=== PATIENT | male | born 1960 | race Caucasian/White ===

== ENCOUNTER 2022-02-08 14:20 | Outpatient (REF) | payer OTHER, SELFPAY ==
--- NOTE | ~2022-02-08 | XR_ITS ---
EXAMINATION: XR FOOT, LEFT CLINICAL INFORMATION: Pneumonia left foot. Rule out osteoma myelitis COMPARISON: None TECHNIQUE: AP, lateral, and oblique views of the left foot. FINDINGS: There is no fracture, dislocation, periosteal erosion or thickening there is a moderate size calcaneal and a small retrocalcaneal enthesophyte. There is soft tissue gas along the plantar aspect proximal phalanx third digit but no extension to the undersurface of the metatarsals or phalanges. XR/XR foot LT min 3V IMPRESSION: 1. Soft tissue gas along the plantar aspect distal foot but no extension to the undersurface of the metatarsals or phalanges to suspect osteomyelitis. 2. There is a moderate size calcaneal heel and small retrocalcaneal enthesophytes.
[2022-02-08 16:32] LABS: MANUAL DIFF FLAG NO
[2022-02-08 16:45] LABS: Estimated Average Glucose 146 mg/dL; Hemoglobin A1c % 6.7 %
[2022-02-08 16:57] LABS: Alanine Aminotransferase 19 U/L (0-40); Albumin Level 3.9 g/dL (3.5-5.0); Alkaline Phosphatase 73 U/L (39-117); Anion Gap 15 (12-20); Aspartate Amino Transferase 18 U/L (5-37); Blood Urea Nitrogen 17 mg/dL (9-16); C Reactive Protein 5.87 mg/dL (< or = 0.50); Calcium 8.8 mg/dL (8.4-10.2); Carbon Dioxide 28 mmol/L (22-29); Chloride 103 mmol/L (96-108); Estimated Glomerular Filt Rate > 60; Glucose Random 140 mg/dL (60-115); Potassium 3.9 mmol/L (3.3-5.1); Sodium 142 mmol/L (135-145); Total Protein 7.2 g/dL (6.5-8.0)
[2022-02-08 16:59] LABS: Basophils Percent Auto 0.4 % (0-2); Eosinophils Absolute Auto 0.2 X10*3/uL (0.0-0.4); Eosinophils Percent Auto 2.7 % (0-4); Hematocrit 42.1 % (42.0-52.0); Hemoglobin 14.9 g/dl (14.0-18.0); Imm Gran Abs Auto 0.03 X10*3/uL (0.00-0.03); Imm Gran Pct Auto 0.4 % (0.0-0.4); Lymphocytes Absolute Auto 1.3 X10*3/uL (1.2-4.9); Lymphocytes Percent Auto 19.6 % (20-40); Mean Corpuscular HGB Conc 35.4 g/dl (31.0-36.0); Mean Corpuscular Hemoglobin 36.3 pg (27.0-33.0); Mean Corpuscular Volume 102.7 fL (80.0-98.0); Mean Platelet Volume 9.5 fL (9.4-12.4); Monocytes Absolute Auto 0.7 X10*3/uL (0.1-1.2); Monocytes Percent Auto 10.5 % (2-11); Neutrophils Absolute Auto 4.5 x10*3/uL (2.0-8.3); Neutrophils Percent Auto 66.4 % (45-73); Platelet Count 255 X10*3/uL (160-400); Red Cell Distribution Width 12.5 % (11.0-16.0); White Blood Count 6.8 X10*3/uL (4.8-10.8)
[2022-02-08 17:11] LABS: Erythrocyte Sedimentation Rate 20 MM/HR (0-15)
== END 2022-02-08 14:21 | disposition home or self-care (01) ==
LOC: HO.HMGCLDS 14:20
PROVIDERS: PCP Internal Medicine; Visit Provider Internal Medicine
DX: R53.83 Other fatigue (principal); E11.9 Type 2 diabetes mellitus without complications; S91.302D Unspecified open wound, left foot, subsequent encounter
CPT/HCPCS: 36415; 73630; 80053; 83036; 85025; 85652; 86140

== ENCOUNTER 2022-02-21 07:50 | Outpatient (RCR) | payer OTHER, SELFPAY | END 2022-05-17 16:00 | disposition home or self-care (01) | LOC: HO.WCC 07:50 | PROVIDERS: PCP Internal Medicine; Visit Provider Physician Assistant | DX: E11.621 Type 2 diabetes mellitus with foot ulcer (principal); L97.522 Non-pressure chronic ulcer of other part of left foot with fat layer exposed; E11.42 Type 2 diabetes mellitus with diabetic polyneuropathy; I10 Essential (primary) hypertension; Z79.84 Long term (current) use of oral hypoglycemic drugs; Z79.2 Long term (current) use of antibiotics | CPT/HCPCS: 11042; 11043; 99212 ==

== ENCOUNTER → 2022-03-02 10:38 | Outpatient (REF) | payer OTHER, SELFPAY ==
--- NOTE | ~2022-03-02 | NM_ITS ---
EXAMINATION: THREE PHASE BONE SCAN CLINICAL INFORMATION: Left foot infected ulcer. Diabetes, ulcer left foot for 2 1/2 months. Debridement 03/02/2022.. COMPARISON: No previous bone scan is available for comparison. Radiographs of the left foot dated 02/08/2022 are available for comparison.. TECHNIQUE: Initial rapid sequence images were obtained over the feet during the bolus injection of 38 mCi Tc-99m MDP. Static images of the knees to the feet with multiple projections of the distal lower extremities were then obtained 2.5 hours post injection. FINDINGS: Initial rapid sequence images show a diffuse mild increase in flow to the left foot with a focus of more prominently increased flow in the region of the distal aspect of the left second metatarsal. Blood pool images obtained immediately following the flow study are similar in appearance showing a mild diffuse increase in blood pool activity in the left foot with a focus of more prominently increased activity in the distal aspect of the second metatarsal. Distally this activity has a circumferential peripheral pattern which is centrally relatively photopenic. Delayed static images show a focus of moderately increased activity in the left distal second metatarsal region corresponding to the region of increased flow and blood pool activity described above. Distal to this in the second digit an additional focus of mildly increased activity is present, probably in the proximal phalanx. In addition to these more distal foci, there is mildly to moderately increased activity present in the mid foot in the region of the second and third tarsometatarsal joints and a slightly less intense focus is present more medially probably in the medial cuneiform bone. No other foci of abnormal activity are present in either foot or ankle. In the knees there is mildly increased activity in the patellar compartment of the right knee. Radiographs of the left foot dated 02/08/2022 show evidence of a skin ulcer in the plantar aspect of the distal left foot. NM/NM bone 3 phase IMPRESSION: 1. Abnormality in all 3 phases is present in the region of the distal left second metatarsal bone. The findings are suspicious for osteomyelitis in this region. In addition the delayed static images show a mild focal abnormality in the mid second digit of the left foot probably in the proximal phalanx, and this is nonspecific in the absence of significant flow abnormality but could be an additional small focus of osteomyelitis or a healing traumatic lesion.. 2. Mild abnormalities only on the delayed static images in the midfoot are nonspecific. The absence of significant flow abnormalities these are probably degenerative or traumatic in etiology. 3. These abnormalities could be better characterized with MRI of the left foot, performed without and with intravenous contrast.
== END ==
LOC: HO.NUCMED 10:38
PROVIDERS: PCP Internal Medicine; Visit Provider Internal Medicine
DX: E11.621 Type 2 diabetes mellitus with foot ulcer (principal); L97.529 Non-pressure chronic ulcer of other part of left foot with unspecified severity; S92.902B Unspecified fracture of left foot, initial encounter for open fracture
CPT/HCPCS: 78315; A9503

== ENCOUNTER → 2022-03-24 09:34 | Outpatient (BNVA) | payer OTHER, SELFPAY | PROVIDERS: PCP Internal Medicine; Visit Provider Internal Medicine | DX: M86.9 Osteomyelitis, unspecified (principal); S91.302A Unspecified open wound, left foot, initial encounter; X58.XXXA Exposure to other specified factors, initial encounter; Y93.9 Activity, unspecified; Y92.9 Unspecified place or not applicable; Y99.8 Other external cause status; E11.9 Type 2 diabetes mellitus without complications | CPT/HCPCS: 99202 ==

== ENCOUNTER 2022-04-19 08:45 | Outpatient (REF) | payer OTHER, SELFPAY ==
--- NOTE | ~2022-04-19 | MR_ITS ---
EXAMINATION: MR FOOT WITHOUT AND WITH CONTRAST, LEFT CLINICAL INFORMATION: Osteomyelitis. Infected ulcer. Diabetes. COMPARISON: Left foot bone scan dated 03/02/2022 and left foot radiographs dated 02/08/2022. TECHNIQUE: Multisequence MR imaging of the left foot was obtained before and after the IV administration of 10 mL Gadavist contrast on a high-field strength scanner. FINDINGS: Soft tissue ulceration along the plantar aspect of the 2nd metatarsophalangeal joint measuring up to 1.5 cm in ML dimension with adjacent skin thickening and postcontrast soft tissue enhancement, consistent with acute cellulitis. No organized fluid collection/abscess formation. No significant evidence of acute osteomyelitis within the adjacent 2nd metatarsal head or base of the 2nd proximal phalanx. Full-thickness articular cartilage loss at the 2nd metatarsophalangeal joint with bony remodeling, mild subchondral cystic change, and small marginal osteophytes. Findings are similar when compared to the prior radiographs. No additional abnormal marrow signal. No stress reaction or fracture. The visualized flexor and extensor tendons are intact. Atrophy throughout the intrinsic musculature of the foot, which can be seen in diabetic patients. Intact Lisfranc ligament. Dorsal subcutaneous edema. No organized fluid collection/abscess formation. MR/MR foot LT wo/w con IMPRESSION: 1. Soft tissue ulceration and cellulitis along the plantar aspect of the 2nd metatarsophalangeal joint without evidence of abscess formation. No evidence of acute osteomyelitis. 2. 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 3. Dorsal subcutaneous edema. 4. Atrophy throughout the intrinsic musculature of the foot, which can be seen in diabetic patients.
== END 2022-04-19 08:46 | disposition home or self-care (01) ==
LOC: HO.MRI 08:45
PROVIDERS: Visit Provider Internal Medicine
DX: M86.9 Osteomyelitis, unspecified (principal)
CPT/HCPCS: 73720; A9585

== ENCOUNTER 2022-06-28 09:00 | Outpatient (RCR) | payer OTHER, SELFPAY | END 2022-06-28 16:00 | disposition home or self-care (01) | LOC: HO.WCC 09:00 | PROVIDERS: PCP Internal Medicine; Visit Provider Surgery | DX: Z09 Encounter for follow-up examination after completed treatment for conditions other than malignant neoplasm (principal); Z79.84 Long term (current) use of oral hypoglycemic drugs; Z79.899 Other long term (current) drug therapy; Z86.31 Personal history of diabetic foot ulcer | CPT/HCPCS: 97597; 99212 ==

== ENCOUNTER 2023-03-28 07:14 | Outpatient (REF) | payer OTHER, SELFPAY ==
[2023-03-28 11:24] LABS: MANUAL DIFF FLAG NO
[2023-03-28 11:41] LABS: Basophils Percent Auto 0.6 % (0-2); Eosinophils Absolute Auto 0.2 X10*3/uL (0.0-0.4); Eosinophils Percent Auto 2.8 % (0-4); Hematocrit 41.7 % (42.0-52.0); Hemoglobin 15.1 g/dl (14.0-18.0); Imm Gran Abs Auto 0.02 X10*3/uL (0.00-0.03); Imm Gran Pct Auto 0.4 % (0.0-0.4); Lymphocytes Absolute Auto 1.5 X10*3/uL (1.2-4.9); Lymphocytes Percent Auto 28.7 % (20-40); Mean Corpuscular HGB Conc 36.2 g/dl (31.0-36.0); Mean Corpuscular Hemoglobin 38.4 pg (27.0-33.0); Mean Corpuscular Volume 106.1 fL (80.0-98.0); Mean Platelet Volume 9.8 fL (9.4-12.4); Monocytes Absolute Auto 0.6 X10*3/uL (0.1-1.2); Monocytes Percent Auto 10.5 % (2-11); Neutrophils Absolute Auto 3.1 x10*3/uL (2.0-8.3); Platelet Count 211 X10*3/uL (160-400); Red Blood Count 3.93 X10*6/uL (4.60-5.80); Red Cell Distribution Width 14.6 % (11.0-16.0); White Blood Count 5.3 X10*3/uL (4.8-10.8)
[2023-03-28 12:01] LABS: Alanine Aminotransferase 16 U/L (0-40); Albumin Level 3.8 g/dL (3.5-5.0); Alkaline Phosphatase 70 U/L (39-117); Anion Gap 11 (12-20); Aspartate Amino Transferase 22 U/L (5-37); Bilirubin Total 0.6 mg/dL (0.0-1.0); Blood Urea Nitrogen 21 mg/dL (9-16); Calcium 9.1 mg/dL (8.4-10.2); Carbon Dioxide 27 mmol/L (22-29); Chloride 106 mmol/L (96-108); Cholesterol 166 mg/dL (<200); Estimated Average Glucose 140 mg/dL; Estimated Glomerular Filt Rate > 60; Glucose Fasting 153 mg/dL (60-99); HDL Cholesterol 40 mg/dL (>40); Hemoglobin A1c % 6.5 % (<6.0); LDL Cholesterol Calculated 92 mg/dL (<100); Potassium 4.4 mmol/L (3.3-5.1); Sodium 140 mmol/L (135-145); Total Protein 7.2 g/dL (6.5-8.0); Triglycerides 170 mg/dL (<150)
[2023-03-28 12:14] LABS: Prostate Specific Antigen 0.88 ng/mL (<0.05-4.0)
== END 2023-03-28 07:15 | disposition home or self-care (01) ==
LOC: HO.HMGCLDS 07:14
PROVIDERS: PCP Internal Medicine; Visit Provider Internal Medicine
DX: Z00.00 Encounter for general adult medical examination without abnormal findings (principal); Z12.5 Encounter for screening for malignant neoplasm of prostate; R53.83 Other fatigue; E78.00 Pure hypercholesterolemia, unspecified; E11.9 Type 2 diabetes mellitus without complications
CPT/HCPCS: 36415; 80053; 80061; 83036; 84153; 85025

== ENCOUNTER 2023-10-17 10:50 | Inpatient (IN) | payer OTHER, SELFPAY ==
--- NOTE | ~2023-10-17 | US_ITS ---
EXAMINATION: Noninvasive assessment of the bilateral lower extremities with ARTERIAL DUPLEX and ANKLE BRACHIAL INDICES (ABIs). CLINICAL INFORMATION: Peripheral vascular disease. Left foot wound TECHNIQUE: Duplex Doppler techniques with waveform analysis and measurement of velocities in the bilateral common femoral, profunda femoris, superficial femoral, popliteal and tibial arteries were performed. Additionally, ankle pulse volume recordings, ankle pressure measurements and ankle brachial indices were obtained of the lower extremity arterial system bilaterally. The study was performed only at rest. COMPARISON: None FINDINGS: DIRECT DUPLEX DOPPLER FINDINGS: RIGHT LEG: Common femoral artery: 122 cm/s, phasicity: Biphasic Profunda femoris artery: 49 cm/s, phasicity: Triphasic Superficial femoral artery (proximal): 99.4 cm/s, phasicity: Triphasic Superficial femoral artery (mid): 88 cm/s, phasicity: Triphasic Superficial femoral artery (distal): 81.7 cm/s, phasicity: Biphasic Popliteal artery: 104 cm/s, phasicity: Triphasic Posterior tibial artery: 76.5 cm/s, phasicity: Biphasic Peroneal artery: Not visualized Anterior tibial artery: 47.6 cm/s, phasicity: Biphasic Dorsalis pedis artery: 23.8 cm/s, phasicity:Biphasic LEFT LEG: Common femoral artery: 132 cm/s, phasicity: Triphasic Profunda femoris artery: 63.7 cm/s, phasicity: Biphasic Superficial femoral artery (proximal): 81.5 cm/s, phasicity: Triphasic Superficial femoral artery (mid): 142 cm/s, phasicity: Triphasic Superficial femoral artery (distal): 145 cm/s, phasicity: Triphasic Popliteal artery: 112 cm/s, phasicity: Triphasic Posterior tibial artery: 97.8 cm/s, phasicity: Triphasic Peroneal artery: Not visualized Anterior tibial artery: 42.3 cm/s, phasicity: Biphasic Dorsalis pedis artery: 107 cm/s, phasicity: Triphasic ANKLE-BRACHIAL INDEX: Right: 1.13 Left: 1.08 ANKLE PRESSURES: Right: PT 169, DP 184 Left: PT 175, DP 176 ANKLE PVR WAVEFORMS: Right: Normal Left: Normal US/US JULITA complete IMPRESSION: Right leg: Normal ankle brachial index and PVR waveform. Unremarkable duplex arterial ultrasound without significant arterial stenosis or occlusion. Left leg: Normal ankle brachial index and PVR waveform. Unremarkable duplex arterial ultrasound without significant arterial stenosis or occlusion. JULITA Reference: - >1.4 = calcified vessels - 0.9 - 1.4 = normal - no significant arterial disease - 0.7 - 0.89 = mild peripheral arterial disease - 0.51 - 0.69 = moderate peripheral arterial disease - d 0.50 = severe peripheral arterial disease - < .30 = critical arterial disease Electronically signed by: Mathieu Pelaez MD 10/19/2023 02:15 PM EDT RP
--- NOTE | ~2023-10-17 | US_ITS ---
EXAMINATION: Noninvasive assessment of the bilateral lower extremities with ARTERIAL DUPLEX and ANKLE BRACHIAL INDICES (ABIs). CLINICAL INFORMATION: Peripheral vascular disease. Left foot wound TECHNIQUE: Duplex Doppler techniques with waveform analysis and measurement of velocities in the bilateral common femoral, profunda femoris, superficial femoral, popliteal and tibial arteries were performed. Additionally, ankle pulse volume recordings, ankle pressure measurements and ankle brachial indices were obtained of the lower extremity arterial system bilaterally. The study was performed only at rest. COMPARISON: None FINDINGS: DIRECT DUPLEX DOPPLER FINDINGS: RIGHT LEG: Common femoral artery: 122 cm/s, phasicity: Biphasic Profunda femoris artery: 49 cm/s, phasicity: Triphasic Superficial femoral artery (proximal): 99.4 cm/s, phasicity: Triphasic Superficial femoral artery (mid): 88 cm/s, phasicity: Triphasic Superficial femoral artery (distal): 81.7 cm/s, phasicity: Biphasic Popliteal artery: 104 cm/s, phasicity: Triphasic Posterior tibial artery: 76.5 cm/s, phasicity: Biphasic Peroneal artery: Not visualized Anterior tibial artery: 47.6 cm/s, phasicity: Biphasic Dorsalis pedis artery: 23.8 cm/s, phasicity:Biphasic LEFT LEG: Common femoral artery: 132 cm/s, phasicity: Triphasic Profunda femoris artery: 63.7 cm/s, phasicity: Biphasic Superficial femoral artery (proximal): 81.5 cm/s, phasicity: Triphasic Superficial femoral artery (mid): 142 cm/s, phasicity: Triphasic Superficial femoral artery (distal): 145 cm/s, phasicity: Triphasic Popliteal artery: 112 cm/s, phasicity: Triphasic Posterior tibial artery: 97.8 cm/s, phasicity: Triphasic Peroneal artery: Not visualized Anterior tibial artery: 42.3 cm/s, phasicity: Biphasic Dorsalis pedis artery: 107 cm/s, phasicity: Triphasic ANKLE-BRACHIAL INDEX: Right: 1.13 Left: 1.08 ANKLE PRESSURES: Right: PT 169, DP 184 Left: PT 175, DP 176 ANKLE PVR WAVEFORMS: Right: Normal Left: Normal US/US arterial duplex LE BI IMPRESSION: Right leg: Normal ankle brachial index and PVR waveform. Unremarkable duplex arterial ultrasound without significant arterial stenosis or occlusion. Left leg: Normal ankle brachial index and PVR waveform. Unremarkable duplex arterial ultrasound without significant arterial stenosis or occlusion. JULITA Reference: - >1.4 = calcified vessels - 0.9 - 1.4 = normal - no significant arterial disease - 0.7 - 0.89 = mild peripheral arterial disease - 0.51 - 0.69 = moderate peripheral arterial disease - d 0.50 = severe peripheral arterial disease - < .30 = critical arterial disease Electronically signed by: Mathieu Pelaez MD 10/19/2023 02:15 PM EDT
--- NOTE | ~2023-10-17 | IR_ITS ---
History: 63-year-old male with need for long-term IV access Procedure performed: 1. Ultrasound and fluoroscopically guided placement of a single-lumen PICC via the right basilic vein. Physician: Sophie Bradley MD FSIR Anesthesia: 9 mL of 1% lidocaine was utilized for local anesthesia Specimen: None Drain: None Estimated blood loss: Minimal Complications: None Procedure in detail: Informed and written consent was obtained. The patient was positioned supine on the angiography table with sterile preparation of his right arm. A tourniquet was applied. Ultrasound of the arm showed wide patency of the right basilic vein and this was selected for access. 1% lidocaine was injected subcutaneously and extended to the edge of the vein. A small incision was made in the skin with a #11 blade. Through the incision and under ultrasound guidance with permanent recordings and direct visualization of needle entry into the vein, the right basilic vein was catheterized in an antegrade fashion. A wire was threaded to the right atrium and used for measurement. The peel-away sheath was placed over the wire. A single-lumen PICC line was trimmed to length measuring 50 cm and inserted through the peel-away sheath. A saved fluoroscopic image shows that the PICC terminates at the right atrium. The PICC line was tested and flushes and aspirates appropriately. It was locked and secured to the skin with a StatLock device and overlying sterile dressing. Summary: Successful ultrasound and fluoroscopic guided PICC line that terminates in the right atrium and is ready for immediate use. Electronically signed by: Mario Bradley MD 10/25/2023 05:24 PM EDT
--- NOTE | ~2023-10-17 | XR_ITS ---
EXAMINATION: XR TOES, LEFT CLINICAL INFORMATION: Mild tendinosis second toe COMPARISON: October 03, 2023 TECHNIQUE: 3 views of the left toes were obtained. FINDINGS: There is associated destruction of the base AND proximal phalanx of second toe visualized to single view are not surrounded by significant soft tissue swelling most likely due to fracture would be related to osseous destruction due to osteomyelitis, correlate clinically. The rest of tubes are unremarkable. XR/XR toe LT min 2V IMPRESSION: Fracture/destruction of the base of the proximal phalanx of second toe on the left Electronically signed by: Beatriz Hoffmann MD 10/17/2023 04:24 PM EDT
[2023-10-17 11:01] VITALS: BP 184/76; PULSE 68; RESP 18; TEMP 36.8; O2SAT 97; BMI 39.7
--- NOTE | 2023-10-17 11:03 | ED_ITS ---
HPI - General Adult General Chief complaint: General Medical Stated complaint: l foot numb Time Seen by Provider: 10/17/23 17:07 Source: patient Limitations: no limitations History of Present Illness ED Provider: Margy Greco PA-C HPI narrative: 63-year-old male with history of diabetes, hypertension, hyperlipidemia presents with left foot infection for over 1 week. Patient was seen by his doctor as an outpatient, he had cellulitis of the left 2nd toe, he was placed on a course of cephalexin. His symptoms have progressed, the cellulitis has spread to adjacent digits and over the dorsum of the foot. Patient denies fever, he has no pain secondary to his peripheral neuropathy. Patient saw Dr. Person today, he was advised to be admitted to the hospital for IV antibiotics. Related Data Home Medications ?Medication ?Instructions ?Recorded ?Confirmed atorvastatin 20 mg tablet 20 mg PO DAILY 03/24/22 empagliflozin 25 mg tablet 25 mg PO DAILY 03/24/22 (Jardiance) losartan 50 mg tablet 50 mg PO DAILY 03/24/22 metformin 1,000 mg tablet 1,000 mg PO DAILY 03/24/22 metoprolol succinate 50 mg 50 mg PO DAILY 03/24/22 tablet,extended release 24 hr pioglitazone 30 mg tablet 30 mg PO DAILY 03/24/22 Allergies Allergy/AdvReac Type Severity Reaction Status Date / Time No Known Allergies Allergy Verified 10/17/23 11:03 Review of Systems 2 Review of Systems: No all other systems are reviewed and are negative Constitutional: Constitutional: Denies fever(s) Cardiovascular: Cardiovascular: Denies chest pain and Denies dyspnea Respiratory: Respiratory: Denies dyspnea Gastrointestinal: Gastrointestinal: Denies nausea Musculoskeletal: Musculoskeletal: Denies arthralgias and Reports joint swelling Integumentary/Breasts: Skin/Breast: Reports change in pigmentation [facility] Past Medical History Attestation statement: The following information was validated with the patient. Medical History (Updated 10/17/23 @ 17:53 by MOR Vargas) Wound of foot Osteomyelitis Social History Social History Advance Directives: No Advance Directives Information Provided: No Do you have a plan to hurt others: No Plan Physical Exam ED Vital Signs: Vital Signs - 24 hr 10/17/23 11:01 Temperature 98.3 F Pulse Rate 68 Respiratory Rate 18 Blood Pressure 184/76 H Pulse Oximetry 97 Oxygen Delivery Method Room Air BMI result Body Mass Index 39.7 Const Other: Alert well in appearance Orientation/consciousness: patient oriented x3 Resp Other: Nonlabored respiration Cardio Other: Normal peripheral perfusion, pitting edema left foot Skin Other: Warm dry no rash Neuro General: patient oriented x3, no focal motor deficits and CN's II-XI intact bilaterally Extrem Other: Erythema and warmth noted over digits 2 and 3 of the left foot, the erythema spans inferiorly over the dorsum of the foot, the foot overall is edematous Psych Other: Calm cooperative Course Course Course Narrative: RME, this is a rapid medical exam performed by Ovidio Phan please refer to primary provider for complete H&P- patient presents from wound care for a left 2nd toe wound that is infected. Per Dr Molina, the patient requires admission for IV antibiotics. He is currently taking cephalexin. Labs and x-ray ordered Reevaluation(s) Time: 11:04 Medical Decision Making Medical Decision Making [facility] Narrative: 63-year-old male with history of diabetes, hypertension, hyperlipidemia presents with left foot infection for over 1 week. Patient was seen by his doctor as an outpatient, he had cellulitis of the left 2nd toe, he was placed on a course of cephalexin. His symptoms have progressed, the cellulitis has spread to adjacent digits and over the dorsum of the foot. Patient denies fever, he has no pain secondary to his peripheral neuropathy. Patient saw Dr. Person today, he was advised to be admitted to the hospital for IV antibiotics. Problem: Diabetes History: Per patient I have considered the following differential diagnoses: Cellulitis, purulent cellulitis, gangrene, dry gangrene, osteomyelitis, sepsis Plan: Patient was sent here after failed outpatient treatment of cellulitis, which now has progressed to osteomyelitis. We will start vanco and Zosyn. Screening labs including blood cultures were already obtained. To note he is not septic, he is afebrile, hemodynamically stable. I have independently reviewed the following tests: Labs: No overall leukocytosis however has a left shift, not anemic, no electrolyte abnormality, CRP and sed rate are markedly elevated X-ray left foot:XR TOES, LEFT CLINICAL INFORMATION: Mild tendinosis second toe COMPARISON: October 03, 2023 TECHNIQUE: 3 views of the left toes were obtained. FINDINGS: There is associated destruction of the base AND proximal phalanx of second toe visualized to single view are not surrounded by significant soft tissue swelling most likely due to fracture would be related to osseous destruction due to osteomyelitis, correlate clinically. The rest of tubes are unremarkable. XR/XR toe LT min 2V IMPRESSION: Fracture/destruction of the base of the proximal phalanx of second toe on the left Differential Diagnosis Differential Diagnoses: The differential diagnosis associated with the presentation includes Lab Data 10/17/23 12:08 10/17/23 12:08 Labs: Lab Results 10/17/23 Range/Units 12:08 WBC 8.4 (4.8-10.8) X10*3/uL RBC 3.92 L (4.60-5.80) X10*6/uL Hgb 14.5 (14.0-18.0) g/dl Hct 40.2 L (42.0-52.0) % MCV 102.6 H (80.0-98.0) fL MCH 37.0 H (27.0-33.0) pg MCHC 36.1 H (31.0-36.0) g/dl RDW 13.2 (11.0-16.0) % Plt Count 317 D (160-400) X10*3/uL MPV 9.3 L (9.4-12.4) fL Immature Gran % (Auto) 0.6 H (0.0-0.4) % Neut % (Auto) 74.0 H (45-73) % Lymph % (Auto) 12.7 L (20-40) % [place] % (Auto) 9.8 (2-11) % Eos % (Auto) 2.2 (0-4) % Baso % (Auto) 0.7 (0-2) % Lymph # (Auto) 1.1 L (1.2-4.9) X10*3/uL [place] # (Auto) 0.8 (0.1-1.2) X10*3/uL Eos # (Auto) 0.2 (0.0-0.4) X10*3/uL Baso # (Auto) 0.1 (0.0-0.2) X10*3/uL Abs Immat Gran (auto) 0.05 H (0.00-0.03) X10*3/uL Absolute Neuts (auto) 6.2 (2.0-8.3) x10*3/uL Absolute Nucleated RBC 0.000 (0.0-0.012) X10*3/uL Nucleated RBC % (auto) 0.0 (0.0-0.2) /100WBC ESR 19 H (0-15) MM/HR Sodium 139 (135-145) mmol/L Potassium 4.3 (3.3-5.1) mmol/L Chloride 103 (96-108) mmol/L Carbon Dioxide 26 (22-29) mmol/L Anion Gap 14 (12-20) BUN 20 H (9-16) mg/dL Creatinine 0.91 (0.5-1.4) mg/dL Estim Creat Clear Calc 117.0 Estimated GFR > 60 Random Glucose 134 H (60-115) mg/dL Lactic Acid 1.3 (0.5-2.0) mmol/L Calcium 10.1 D (8.4-10.2) mg/dL Total Bilirubin 0.7 (0.0-1.0) mg/dL AST 22 (5-37) U/L ALT 21 (0-40) U/L Alkaline Phosphatase 78 (39-117) U/L C-Reactive Protein 17.13 H (< or = 0.50) mg/dL Total Protein 8.4 H (6.5-8.0) g/dL Albumin 4.0 (3.5-5.0) g/dL Lipase 33 (8-78) U/L Discharge Plan Discharge Clinical Impression: Osteomyelitis Patient Disposition: Admitted As Inpatient Prescriptions: No Action metformin 1,000 mg tablet 1,000 mg PO DAILY metoprolol succinate 50 mg tablet extended release 24 hr 50 mg PO DAILY Jardiance 25 mg tablet 25 mg PO DAILY losartan 50 mg tablet 50 mg PO DAILY pioglitazone 30 mg tablet 30 mg PO DAILY atorvastatin 20 mg tablet 20 mg PO DAILY Print Language: Citizen [place]
[2023-10-17 12:13] LABS: MANUAL DIFF FLAG NO
[2023-10-17 12:33] LABS: Lactic Acid 1.3 mmol/L (0.5-2.0)
[2023-10-17 12:34] LABS: Basophils Absolute Auto 0.1 X10*3/uL (0.0-0.2); Basophils Percent Auto 0.7 % (0-2); Eosinophils Absolute Auto 0.2 X10*3/uL (0.0-0.4); Eosinophils Percent Auto 2.2 % (0-4); Hematocrit 40.2 % (42.0-52.0); Hemoglobin 14.5 g/dl (14.0-18.0); Imm Gran Abs Auto 0.05 X10*3/uL (0.00-0.03); Imm Gran Pct Auto 0.6 % (0.0-0.4); Lymphocytes Absolute Auto 1.1 X10*3/uL (1.2-4.9); Lymphocytes Percent Auto 12.7 % (20-40); Mean Corpuscular Volume 102.6 fL (80.0-98.0); Mean Platelet Volume 9.3 fL (9.4-12.4); Monocytes Absolute Auto 0.8 X10*3/uL (0.1-1.2); Monocytes Percent Auto 9.8 % (2-11); Neutrophils Absolute Auto 6.2 x10*3/uL (2.0-8.3); Platelet Count 317 X10*3/uL (160-400); Red Blood Count 3.92 X10*6/uL (4.60-5.80); Red Cell Distribution Width 13.2 % (11.0-16.0); White Blood Count 8.4 X10*3/uL (4.8-10.8)
[2023-10-17 12:37] LABS: Alanine Aminotransferase 21 U/L (0-40); Alkaline Phosphatase 78 U/L (39-117); Anion Gap 14 (12-20); Aspartate Amino Transferase 22 U/L (5-37); Bilirubin Total 0.7 mg/dL (0.0-1.0); Blood Urea Nitrogen 20 mg/dL (9-16); C Reactive Protein 17.13 mg/dL (< or = 0.50); Calcium 10.1 mg/dL (8.4-10.2); Carbon Dioxide 26 mmol/L (22-29); Chloride 103 mmol/L (96-108); Estimated Glomerular Filt Rate > 60; Glucose Random 134 mg/dL (60-115); Lipase 33 U/L (8-78); Mean Corpuscular HGB Conc 36.1 g/dl (31.0-36.0); Potassium 4.3 mmol/L (3.3-5.1); Sodium 139 mmol/L (135-145); Total Protein 8.4 g/dL (6.5-8.0)
[2023-10-17 12:48] LABS: Erythrocyte Sedimentation Rate 19 MM/HR (0-15)
[2023-10-17 18:18] VITALS: BP 159/63; PULSE 58; RESP 14; TEMP 36.4; O2SAT 97
--- NOTE | 2023-10-17 18:18 | PM.IMHP ---
History of Present Illness Date of Service: 10/17/23 Attending physician on admission: Mauro Neri Chief Complaint: Left foot infection Pt is a 63-year-old male with a PMH significant for?HLD, HTN, mvf-[id number] type 2 diabetes with peripheral neuropathy, and hx of diabetic foot ulcers who [facility] for evaluation of left 2nd toe cellulitis. Pt has had a history of 5-6 diabetic foot ulcers over the past 20 years. First noticed current foot ulcer approximately 2 months ago. At first was being treated by a marker machine attendant but symptoms persisted and was referred to wound care. Reports things went well for the first week but developed redness on second toe 6 days ago. Was seen again at wound care and started on cephalexin 5 days ago which he reports has been compliant with. Earlier today patient noticed clear discharge from the toe and redness had spread to surrounding digits into the dorsal aspect of the foot. Was seen again by Dr. Freitas in [facility] who advised patient to come to the ED for further evaluation and likely hospitalization for IV antibiotics. Patient also reports left leg has been swollen for the past week, though improved for the past few days. Denies any foot pain due to neuropathy. No fever or chills. Denies nausea or vomiting. No chest pain, SOB, or abdominal pain. In the ED pt was hypertensive up to 184/76, otherwise vitals WNL. Labs were significant ESR 19, and CRP 17.13. No leukocytosis. Stable H& H. No significant electrolyte abnormalities. Renal function baseline. Hepatic function baseline. X-ray of left foot showed fracture/destruction at the base of the proximal phalanx of 2nd toe. Pt was treated with vancomycin and Zosyn. Pt will be admitted to the hospital for treatment and further evaluation of left foot cellulitis and likely left 2nd toe osteomyelitis that has failed outpatient therapy. Review of Systems Review of Systems: Worsening chronic left foot diabetic ulcer with clear drainage Left foot erythema Denies fever, chills, nausea, vomiting No chest pain Denies shortness of breath No abdominal pain [facility] Medical History (Updated 10/17/23 @ 19:29 by MOR Cisse) HTN (hypertension) HLD (hyperlipidemia) Non-insulin dependent type 2 diabetes mellitus Wound of foot Osteomyelitis Social History Advance Directives: No Advance Directives Information Provided: No Do you have a plan to hurt others: No Plan Meds Allergies Allergy/AdvReac Type Severity Reaction Status Date / Time No Known Allergies Allergy Verified 10/17/23 11:03 Active Medications: Current Medications Vancomycin HCl 2,000 mg/ (Sodium Chloride) 500 mls @ 250 mls/hr IV POSTOP ONE Stop: 10/17/23 19:15 Home Medications ?Medication ?Instructions ?Recorded ?Confirmed ?Last Taken ?Type atorvastatin 20 mg tablet 20 mg PO DAILY 03/24/22 10/17/23 10/17/23 History empagliflozin 25 mg tablet 25 mg PO DAILY 03/24/22 10/17/23 10/17/23 History (Jardiance) losartan 50 mg tablet 50 mg PO DAILY 03/24/22 10/17/23 10/17/23 History metformin 1,000 mg tablet 1,000 mg PO BID 03/24/22 10/17/23 10/17/23 History metoprolol succinate 50 mg 50 mg PO DAILY 03/24/22 10/17/23 10/17/23 History tablet,extended release 24 hr pioglitazone 30 mg tablet 30 mg PO DAILY 03/24/22 10/17/23 10/17/23 History cephalexin 500 mg capsule 500 mg PO TID 10/17/23 10/17/23 10/17/23 15:00 History multivitamin with minerals-folic 1 tab PO DAILY 10/17/23 10/17/23 10/17/23 History acid 200 mcg chewable tablet (Multivitamin Gummies) Physical Exam Vital Signs and Narrative: Vital Signs: Last Vital Signs Temp 98.3 F 10/17/23 11:01 Pulse 68 10/17/23 11:01 Resp 18 10/17/23 11:01 BP 184/76 H 10/17/23 11:01 Pulse Ox 97 10/17/23 11:01 O2 Del Method Room Air 10/17/23 11:01 BMI result Body Mass Index 39.7 Constitutional: Alert, in no acute distress. Mental Status: Oriented to person, place and time. Eyes: Pupils are equal, round, and reactive to light. Ear, Nose, and Throat: Oropharynx clear, mucous membranes moist. Ears and nose without deformities. Trachea midline. Respiratory: Clear to auscultation bilaterally. No wheezing, rales, or rhonchi. Cardiovascular: S1, S2 regular. No murmurs, rubs, or gallops. Gastrointestinal: Abdomen soft, non-tender, non-distended. Normal bowel sounds. Neurologic: Cranial nerves II-XII are grossly intact bilaterally. No focal neurological deficits. Moves all extremities spontaneously. Skin: Warm, dry. Musculoskeletal: No cyanosis or clubbing. Extremities: 1+ left lower leg edema. Erythema and chronic non-healing diabetic foot ulcers as pictured below. Psychiatric: Normal mood and affect. Results Labs 10/17/23 12:08 10/17/23 12:08 Labs: Laboratory Results - last 24 hr 10/17/23 12:08 MCV 102.6 H MCH 37.0 H MCHC 36.1 H RDW 13.2 Plt Count 317 D MPV 9.3 L Immature Gran % (Auto) 0.6 H Neut % (Auto) 74.0 H Lymph % (Auto) 12.7 L [place] % (Auto) 9.8 Eos % (Auto) 2.2 Baso % (Auto) 0.7 Lymph # (Auto) 1.1 L [place] # (Auto) 0.8 Eos # (Auto) 0.2 Baso # (Auto) 0.1 Abs Immat Gran (auto) 0.05 H Absolute Neuts (auto) 6.2 Absolute Nucleated RBC 0.000 Nucleated RBC % (auto) 0.0 ESR 19 H Anion Gap 14 Estim Creat Clear Calc 117.0 Estimated GFR > 60 Random Glucose 134 H Lactic Acid 1.3 Calcium 10.1 D Total Bilirubin 0.7 AST 22 ALT 21 Alkaline Phosphatase 78 C-Reactive Protein 17.13 H Total Protein 8.4 H Albumin 4.0 Lipase 33 Imaging Radiologist's Impressions: Impressions Toe X-Ray 10/17/23 11:05 IMPRESSION: Fracture/destruction of the base of the proximal phalanx of second toe on the left Electronically signed by: Beatriz Hoffmann MD 10/17/2023 04:24 PM EDT Assessment and Plan (1) Cellulitis of left foot: Status: Acute Plan Pt is a 63-year-old male with a PMH significant for?HLD, HTN, fiu-abiiead-zakgxmuif type 2 diabetes with peripheral neuropathy, and hx of diabetic foot ulcers who presents [facility] ED [facility] for evaluation of left 2nd toe cellulitis. Pt will be admitted to the hospital for treatment and further evaluation of left foot cellulitis and likely left 2nd toe osteomyelitis that has failed outpatient therapy. Left foot cellulitis with likely 2nd digit osteomyelitis Patient with chronic diabetic foot ulcers x 3 months Left foot erythema and warmth x6 days, worsening while on cephalexin Left toe x-ray showing fracture/destruction at the base of proximal phalanx of 2nd toe Elevated ESR and CRP, concerning for osteomyelitis Does not meet sepsis criteria: No fever, tachycardia, tachypnea, or leukocytosis; lactic acid WNL Patient is started on broad-spectrum antibiotics in the ED Will treat with vancomycin and Zosyn, started 10/17/2023 Will hold on MRI pending ID consult input Wound care consult ID consult Follow cultures Jeu-hsrmuzm-clilvkqte type 2 diabetes Sliding-scale insulin Continue Jardiance, pioglitazone Hold metformin HTN Continue losartan HLD Continue statin Obesity Class II Weight loss encouraged Full Code Attending:?Dr. Neri DVT Prophylaxis: Lovenox Pt will require a hospitalization of at least two nights for treatment of?left foot cellulitis concerning for osteomyelitis that has failed outpatient therapy. Patient will require treatment with IV antibiotics specialist consultation with Infectious Disease. Quality Stroke Does the patient have a stroke diagnosis?: No VTE Prior VTE?: No VTE Risk Level:: Medical - moderate - high VTE Device Contraindication: Treatment Not Indicated VTE Drug Contraindication: N/A - Med Ordered
--- NOTE | 2023-10-17 18:22 | PHA.MEDREC ---
Addendum entered by Thiago Beckham anne-marie 10/17/23 19:08: med rec reviewed Original Note: Pharmacy Consult ? Medication Reconciliation Pharmacy has completed the medication reconciliation. Confirmed medications with patient. Patient confirm he started a Cephalexin 500mg regimen 1 tab TID for 7 days on 10/11/23, he claims he has one pill left took 2 pills already today; this am and at 1500. He confirmed he took the rest of his meds this morning.
[2023-10-17] MEDS: Piperacillin Sodium/Tazobactam 3.375 GM in 0.9 % Sodium Chloride 50 ML IV (19:52)
[2023-10-17] MEDS: Enoxaparin Sodium 40 MG/0.4 ML SYRINGE SUBCUT (19:52)
[2023-10-17 19:58] VITALS: BP 151/63; PULSE 59; RESP 18; TEMP 36.6; O2SAT 98
[2023-10-17 21:14] LABS: Glucose, Whole Blood 115 mg/dL (60-115)
[2023-10-18] MEDS: 0.9 % Sodium Chloride Flush 3 ML SYRINGE IVFLUSH ×4 (00:44→22:13)
[2023-10-18 02:36] VITALS: BP 159/71; PULSE 60; RESP 18; TEMP 36.5; O2SAT 97
[2023-10-18] MEDS: Piperacillin Sodium/Tazobactam 3.375 GM in 0.9 % Sodium Chloride 50 ML IV ×4 (03:03→20:06)
[2023-10-18 05:32] VITALS: BMI 39.7
[2023-10-18 06:18] LABS: Creatinine Clr Calc Pharmacy 131.5; Estimated Glomerular Filt Rate > 60
[2023-10-18 06:55] VITALS: BP 124/63; PULSE 68; RESP 16; TEMP 36.7; O2SAT 98
[2023-10-18 06:57] VITALS: BP 124/63; PULSE 68; RESP 17; TEMP 36.6; O2SAT 98
[2023-10-18 07:09] LABS: Glucose, Whole Blood 84 mg/dL (60-115)
--- NOTE | 2023-10-18 07:27 | PHA.PROG ---
Admission Date/Time: October 17, 2023 18:48 Indication: BONE Weight in k.7 kg Serum Creatinine - Last 168 Hours 10/17/23 10/18/23 12:08 05:22 Creatinine 0.91 0.81 Estimated CrCl and GFR - Last 168 Hours 10/17/23 10/18/23 12:08 05:22 Estim Creat Clear Calc 117.0 131.5 Estimated GFR > 60 > 60 Vancomycin Loading Dose: 2000 Current Vancomycin Dosing Regimen: 1500 Q 12 Vancomycin Monitoring using AUC goal of 400 - 600 range with trough as surrogate marker: 546 Date and Time for next Vancomycin Level to be drawn: 10/18 @ 0900 Pharmacist Comments on Vancomycin Plan: Vancomycin dosing will take advantage of [employer] as a clinical decision support tool that uses Bayesian modeling to calculate individual patient's pharmacokinetic parameters and forecast the patient's drug concentration time course with the target goal AUC 24 range of 400 - 600 mg/L/hr.
[2023-10-18] MEDS: Pioglitazone HCL 30 MG TABLET PO (07:56)
[2023-10-18] MEDS: Atorvastatin Calcium 20 MG TABLET PO (07:56)
[2023-10-18] MEDS: Losartan Potassium 50 MG TABLET PO (07:56)
[2023-10-18] MEDS: Metoprolol Succinate ER 50 MG TAB.ER.24H PO (07:56)
[2023-10-18] MEDS: Empagliflozin 25 MG TABLET PO (07:56)
[2023-10-18] MEDS: Multivitamin TABLET 1 TAB PO (07:56)
--- NOTE | 2023-10-18 09:53 | MHC.CM.PN ---
Pt self-care, lives at home with his , [id number], and adult son. Pts will transport him home at discharge. New HCP completed with pt, now on file. PCP: Dr. Leo Lieberman
[2023-10-18 11:07] LABS: Glucose, Whole Blood 142 mg/dL (60-115)
[2023-10-18] MEDS: vancomycin HCL 1,500 MG in 0.9 % Sodium Chloride 500 ML 333.33 MG IV ×2 (11:07→22:13)
[2023-10-18 15:10] VITALS: BP 142/69; PULSE 54; RESP 18; TEMP 36.1; O2SAT 98
--- NOTE | 2023-10-18 15:13 | P.PNIM_ITS ---
Subjective Subjective Date of Service: 10/18/23 Interval History: foot cellulitis associated with dm Review of Systems foot seems similar no fevers Physical Exam 2 Vital Signs: Vital Signs: Last Vital Signs Temp 96.9 F 10/18/23 15:10 Pulse 54 10/18/23 15:10 Resp 18 10/18/23 15:10 BP 142/69 H 10/18/23 15:10 Pulse Ox 98 10/18/23 15:10 O2 Del Method Room Air 10/18/23 15:10 BMI result Body Mass Index 39.7 Appearance: Alert.? Oriented X3.? cvs: rrr, [id number] , no murmur res: clear to auscultation ,no rhonchii or wheezing abd: no rebound or guarding ,nt, bs present. ext pulses present , no cyanosis ,. neuro: axo3 , nonfocal. Objective Data Active Medications Acetaminophen (Acetaminophen 325 Mg Tablet) 650 mg PO Q6H PRN PRN Reason: Pain, Mild (Pain Scale 1-3), fever or headache Atorvastatin Calcium (Atorvastatin Calcium 20 Mg Tablet) 20 mg PO DAILY [facility] Last Admin: 10/18/23 07:56 Dose: 20 mg Documented By: REJI Benzonatate (Benzonatate 100 Mg Capsule) 100 mg PO TID PRN PRN Reason: Cough Calcium Carbonate (Calcium Carbonate 750 Mg Tab.Chew) 750 mg PO Q4H PRN PRN Reason: Heartburn Empagliflozin (Empagliflozin 25 Mg Tablet) 25 mg PO DAILY [facility] Last Admin: 10/18/23 07:56 Dose: 25 mg Documented By: REJI Enoxaparin Sodium (Enoxaparin Sodium 40 Mg/0.4 Ml Syringe) 40 mg SUBCUT Q24H [facility] Last Admin: 10/17/23 19:52 Dose: 40 mg Documented By: IDALMIS Glucose (Glucose Gel 15 Gm Gel..Gram.) 15 gm PO Q15M PRN; Protocol PRN Reason: per Hypoglycemia Standing Ord. Piperacillin Sod/Tazobactam (Sod 3.375 gm/ Sodium Chloride) 50 mls @ 100 mls/hr IV Q6H [facility] Last Infusion: 10/18/23 14:16 Dose: Infused Documented By: REJI Dextrose (D10) 250 mls @ 750 mls/hr IV Q15M PRN; Protocol PRN Reason: per Hypoglycemia Standing Ord. Vancomycin HCl 1,500 mg/ (Sodium Chloride) 500 mls @ 333.333 mls/hr IV Q12H [facility] Last Infusion: 10/18/23 12:55 Dose: Infused Documented By: REJI Insulin Human Lispro (Insulin Lispro 100 Unit/Ml 3 Ml Vial) 0 unit SUBCUT QIDACHS [facility]; Protocol Last Admin: 10/18/23 11:18 Dose: Not Given Documented By: REJI Non-Admin Reason: No Insulin Coverage Losartan Potassium (Losartan Potassium 50 Mg Tablet) 50 mg PO DAILY [facility]; Protocol Last Admin: 10/18/23 07:56 Dose: 50 mg Documented By: REJI Magnesium Hydroxide (Milk Of Magnesia 30 Ml Oral.Susp) 30 ml PO DAILY PRN PRN Reason: Constipation Melatonin (Melatonin 3 Mg Tablet) 6 mg PO BEDTIME PRN PRN Reason: Insomnia Metoprolol Succinate (Metoprolol Succinate Er 50 Mg Tab.Er.24h) 50 mg PO DAILY [facility]; Protocol Last Admin: 10/18/23 07:56 Dose: 50 mg Documented By: REJI Multivitamins/Vitamin C (Multivitamin Tablet) 1 tab PO DAILY [facility] Last Admin: 10/18/23 07:56 Dose: 1 tab Documented By: REJI Ondansetron HCl (Ondansetron Hcl 4 Mg/2 Ml Vial) 4 mg IVPUSH Q8H PRN PRN Reason: Nausea and Vomiting Pharmacy Consult (Consult Rx Vancomycin Dosing) 1 each MISCELLANE DAILY PRN PRN Reason: Consult order Pioglitazone HCl (Pioglitazone Hcl 30 Mg Tablet) 30 mg PO DAILY [facility] Last Admin: 10/18/23 07:56 Dose: 30 mg Documented By: REJI Sodium Chloride (0.9 % Sodium Chloride Flush 3 Ml Syringe) 3 ml IVFLUSH QSHIFT [facility] Last Admin: 10/18/23 07:59 Dose: 3 ml Documented By: REJI Labs 10/17/23 12:08 10/18/23 05:22 Labs: Laboratory Results - last 24 hr 10/17/23 10/18/23 10/18/23 21:10 05:22 07:05 Estim Creat Clear Calc 131.5 Estimated GFR > 60 POC Glucose 115 84 10/18/23 11:04 Estim Creat Clear Calc Estimated GFR POC Glucose 142 H Microbiology Microbiology Results: Microbiology 10/17/23 12:08 Blood Culture - Preliminary Blood - Venous No growth after 24 hours. Assessment and Plan (1) Cellulitis of left foot: Status: Acute (2) Wound of foot: Status: Acute Assessment and Plan: 63-year-old male with a PMH significant for?HLD, HTN, itq-[id number] type 2 diabetes with peripheral neuropathy, and hx of diabetic foot ulcers who presents [facility] the ED from [facility] for evaluation of left 2nd toe cellulitis. Pt will be admitted to the hospital for treatment and further evaluation of left foot cellulitis and likely left 2nd toe osteomyelitis that has failed outpatient therapy. Left foot cellulitis associated wth dm chronic diabetic foot ulcers x 3 months Left foot erythema and warmth x6 days, worsening while on cephalexin Left toe x-ray showing fracture/destruction at the base of proximal phalanx of 2nd toe. Elevated ESR 19 and CRP:17.13 continue vancomycin and Zosyn, started 10/17/2023, ID consult input Wound care consult Follow cultures Kyu-xjqichf-olmcblupw type 2 diabetes Sliding-scale insulin Continue Jardiance, pioglitazone Hold metformin HTN Continue losartan HLD Continue statin Obesity Class II Weight loss encouraged Full Code DVT Prophylaxis: Lovenox ongoing hospitalization need for treatment of?left foot cellulitis concerning for osteomyelitis that has failed outpatient therapy. Patient will require treatment with IV antibiotics specialist consultation with Infectious Disease. Quality Stroke Does the patient have a stroke diagnosis?: No VTE Prior VTE?: No VTE Risk Level:: Medical - moderate - high VTE Device Contraindication: Treatment Not Indicated VTE Drug Contraindication: N/A - Med Ordered
--- NOTE | 2023-10-18 15:58 | HO.WOUND ---
Wound Consult: Initial 63yr old Male? [place] [facility] [place] - See progress notes and H&P for detailed history.? Wound consult placed for Left Diabetic Foot wounds POA.? Patient agreeable to assessment and photo documentation.? Patient reports and chart review supports patient follows with the outpatient wound clinic and was referred to here during his appointment this week. Patient reports the Outpatient wound clinic treats with Silver Alginate and the two involvement is new. He reports it was a blister that was unroofed - he was able to provide pictures to this residential mortgage underwriter for review. Left 2nd Toe Left plantar photo failed to upload Etiology: Diabetic foot wound ??Present on Admission Measurements: Posterior toe: 1cm x 3.5cm x 0.1cm - red maroon dry wound bed with epidermal unroofed wound bed Plantar 0.5cm x 0.3cm x 0.3cm - dry dusky red wound bed - no dressing in palce Drainage / Odor: none Edges: toe: well defined plantar: ? callused Whitney wound:Neuropathy, +PP - Toe: swelling redness and warmth noted ? No Induration, Fluctuance noted Plantar: Dry callused No Induration, Fluctuance or warmth noted Pain: denies reports neuropathy Goals of Treatment: ?Continue to treat systematically per physician orders. Moist wound healing to the toe and moisture management and off loading to the plantar foot Recommendations: 1. Provide adequate and supplemental nutrition.? 2. When applicable maintain blood glucose levels per Providers order. 3. Left 2nd Toe - Cleanse with Ns moist gauze, pat dry. Apply xeroform to wound bed cover with dry gauze wrap. Change daily. 4. Left Plantar wound - Elevate lower leg - limit / minimize direct pressure such as with walking. Cleanse with NS moist gauze, pat dry. Lightly pack with Durafiber AG, cover with foam dressing. Change every 3 days. Re-consult wound care Nurse for wound deterioration or wound changes.
[2023-10-18 16:05] LABS: Glucose, Whole Blood 124 mg/dL (60-115)
[2023-10-18] MEDS: Enoxaparin Sodium 40 MG/0.4 ML SYRINGE SUBCUT (18:02)
[2023-10-18 19:28] VITALS: BP 127/61; PULSE 53; RESP 18; TEMP 36.7; O2SAT 98
[2023-10-18 23:36] VITALS: BP 149/67; PULSE 54; RESP 18; TEMP 36.7; O2SAT 98
--- NOTE | 2023-10-18 23:39 | W.PM.IDCN ---
History of Present Illness Data of Consult Service Date: 10/18/23 Requesting physician: Mauro Neri Primary Care Provider: Leo Lieberman MD HPI Reason for consult: infection left second/third toe/plantar surface longstanding He presents with redness and swelling left 2/3 toe. He has had intermittent infections over years this foot and I saw him in office on 03/24/2022. He had positive bone scan for left 2nd MT infection and MRI unremarkable in March and I never saw him back in office. He was supposed to return. He has been seeing Dr Freitas [facility] and had worsening redness and sent to ER. He had been on Keflex 500 mg po tid since 10/10 and no improvement. He has no fever or chills. Review of Systems Review of Systems: Yes all other systems are reviewed and are negative [facility] Past Medical History Medical History HTN (hypertension) HLD (hyperlipidemia) Non-insulin dependent type 2 diabetes mellitus Wound of foot Osteomyelitis Family History Family history: reviewed and not pertinent Social History Social History Household Members: Family Housing: House Do you presently have visiting nurse or other home services: No Alcohol intake: never Patient Tobacco Use Status: Never used Tobacco service: No Meds Allergies Allergy/AdvReac Type Severity Reaction Status Date / Time No Known Allergies Allergy Verified 10/17/23 11:03 Active Medications: Current Medications Acetaminophen (Acetaminophen 325 Mg Tablet) 650 mg PO Q6H PRN PRN Reason: Pain, Mild (Pain Scale 1-3), fever or headache Atorvastatin Calcium (Atorvastatin Calcium 20 Mg Tablet) 20 mg PO DAILY [facility] Last Admin: 10/18/23 07:56 Dose: 20 mg Benzonatate (Benzonatate 100 Mg Capsule) 100 mg PO TID PRN PRN Reason: Cough Calcium Carbonate (Calcium Carbonate 750 Mg Tab.Chew) 750 mg PO Q4H PRN PRN Reason: Heartburn Empagliflozin (Empagliflozin 25 Mg Tablet) 25 mg PO DAILY [facility] Last Admin: 10/18/23 07:56 Dose: 25 mg Enoxaparin Sodium (Enoxaparin Sodium 40 Mg/0.4 Ml Syringe) 40 mg SUBCUT Q24H [facility] Last Admin: 10/18/23 18:02 Dose: 40 mg Glucose (Glucose Gel 15 Gm Gel..Gram.) 15 gm PO Q15M PRN; Protocol PRN Reason: per Hypoglycemia Standing Ord. Piperacillin Sod/Tazobactam (Sod 3.375 gm/ Sodium Chloride) 50 mls @ 100 mls/hr IV Q6H [facility] Last Infusion: 10/18/23 21:48 Dose: Infused Dextrose (D10) 250 mls @ 750 mls/hr IV Q15M PRN; Protocol PRN Reason: per Hypoglycemia Standing Ord. Vancomycin HCl 1,500 mg/ (Sodium Chloride) 500 mls @ 333.333 mls/hr IV Q12H [facility] Last Admin: 10/18/23 22:13 Dose: 333.33 mls/hr Insulin Human Lispro (Insulin Lispro 100 Unit/Ml 3 Ml Vial) 0 unit SUBCUT QIDACHS [facility]; Protocol Last Admin: 10/18/23 20:51 Dose: Not Given Losartan Potassium (Losartan Potassium 50 Mg Tablet) 50 mg PO DAILY [facility]; Protocol Last Admin: 10/18/23 07:56 Dose: 50 mg Magnesium Hydroxide (Milk Of Magnesia 30 Ml Oral.Susp) 30 ml PO DAILY PRN PRN Reason: Constipation Melatonin (Melatonin 3 Mg Tablet) 6 mg PO BEDTIME PRN PRN Reason: Insomnia Metoprolol Succinate (Metoprolol Succinate Er 50 Mg Tab.Er.24h) 50 mg PO DAILY [facility]; Protocol Last Admin: 10/18/23 07:56 Dose: 50 mg Multivitamins/Vitamin C (Multivitamin Tablet) 1 tab PO DAILY [facility] Last Admin: 10/18/23 07:56 Dose: 1 tab Ondansetron HCl (Ondansetron Hcl 4 Mg/2 Ml Vial) 4 mg IVPUSH Q8H PRN PRN Reason: Nausea and Vomiting Pharmacy Consult (Consult Rx Vancomycin Dosing) 1 each MISCELLANE DAILY PRN PRN Reason: Consult order Pioglitazone HCl (Pioglitazone Hcl 30 Mg Tablet) 30 mg PO DAILY [facility] Last Admin: 10/18/23 07:56 Dose: 30 mg Sodium Chloride (0.9 % Sodium Chloride Flush 3 Ml Syringe) 3 ml IVFLUSH QSHIFT [facility] Last Admin: 10/18/23 22:13 Dose: 3 ml Home Medications ?Medication ?Instructions ?Recorded ?Confirmed ?Last Taken ?Type atorvastatin 20 mg tablet 20 mg PO DAILY 03/24/22 10/17/23 10/17/23 History empagliflozin 25 mg tablet 25 mg PO DAILY 03/24/22 10/17/23 10/17/23 History (Jardiance) losartan 50 mg tablet 50 mg PO DAILY 03/24/22 10/17/23 10/17/23 History metformin 1,000 mg tablet 1,000 mg PO BID 03/24/22 10/17/23 10/17/23 History metoprolol succinate 50 mg 50 mg PO DAILY 03/24/22 10/17/23 10/17/23 History tablet,extended release 24 hr pioglitazone 30 mg tablet 30 mg PO DAILY 03/24/22 10/17/23 10/17/23 History cephalexin 500 mg capsule 500 mg PO TID 10/17/23 10/17/23 10/17/23 15:00 History multivitamin with minerals-folic 1 tab PO DAILY 10/17/23 10/17/23 10/17/23 History acid 200 mcg chewable tablet (Multivitamin Gummies) Physical Exam Vital Signs: Vital Signs: Last Vital Signs Temp 98.0 F 10/18/23 23:36 Pulse 54 10/18/23 23:36 Resp 18 10/18/23 23:36 BP 149/67 H 10/18/23 23:36 Pulse Ox 98 10/18/23 23:36 O2 Del Method Room Air 10/18/23 23:36 BMI result Body Mass Index 39.7 Const: General: cooperative HEENT: Head: Yes normal to inspection Face and sinus: Yes normal facial exam Mouth: Normal oral and palatal mucosa present Teeth and gingiva: dentition normal Eyes: General: appearance normal, both eyes and all related structures Pupils: Equal, round and reactive pupils present Resp: Effort & Inspection: normal respiratory effort Cardio: Rate: regular rate Rhythm: regular rhythm GI: Palpation (GI): Soft to palpation and nontender : General: Yes no CVA tenderness Back/Spine/Pelvis: Back: no CVA tenderness Skin: General skin exam: no rashes or lesions noted Neuro: General: moves all extremities Cranial nerves: Yes Equal, round and reactive pupils present Extrem: Other: packed clean plantar ulcer reddened dorsal area 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 10/17/23 12:08 Blood - Venous Blood Culture - Preliminary No growth after 24 hours. Assessment and Plan (1) Osteomyelitis: Qualifiers: Laterality: left Osteomyelitis location: foot Osteomyelitis type: other Qualified Code(s): M86.8X7 - Other osteomyelitis, ankle and foot Status: Acute Plan 6 weeks IV ,likely Daptomycin with weekly Ck and creatinine. Follow Wound Care.
[2023-10-19] VITALS (7 sets, daily range): BP systolic 140–166; BP diastolic 64–72; PULSE 53–60; RESP 18–20; TEMP 36.2–36.6; O2SAT 96–99
[2023-10-19] MEDS: Piperacillin Sodium/Tazobactam 3.375 GM in 0.9 % Sodium Chloride 50 ML IV ×4 (01:12→19:47)
[2023-10-19 06:53] LABS: Creatinine Clr Calc Pharmacy 138.3; Estimated Glomerular Filt Rate > 60
[2023-10-19 07:13] LABS: Glucose, Whole Blood 125 mg/dL (60-115)
[2023-10-19 07:28] LABS: Glucose, Whole Blood 96 mg/dL (60-115)
[2023-10-19] MEDS: Multivitamin TABLET 1 TAB PO (07:46)
[2023-10-19] MEDS: Pioglitazone HCL 30 MG TABLET PO (07:46)
[2023-10-19] MEDS: Metoprolol Succinate ER 50 MG TAB.ER.24H PO (07:49)
[2023-10-19] MEDS: Losartan Potassium 50 MG TABLET PO (07:50)
[2023-10-19] MEDS: Empagliflozin 25 MG TABLET PO (07:50)
[2023-10-19] MEDS: Atorvastatin Calcium 20 MG TABLET PO (07:50)
--- NOTE | 2023-10-19 09:30 | P.CONGS_ITS ---
History of Present Illness Consult details Consult date: 10/19/23 Reason for consult: wound care Narrative: Very pleasant 63-year-old gentleman presents for evaluation regarding left lower extremity cellulitis. [facility] and sent in for IV antibiotic therapy. He had a 2nd toe blistering cellulitis and he has a plantar ulcer on that side as well. Of note he is a nonsmoker and has been a diabetic for over 19 years. He now presents to us for vascular evaluation. Review of Systems 2 Review of Systems: Yes all other systems are reviewed and are negative Constitutional: Constitutional: Reports no additional constitutional complaints ENT: Reports Normal hearing present Cardiovascular: Cardiovascular: Denies chest pain, Denies chest pain at rest, Denies chest pain with activity and Denies pedal edema Respiratory: Respiratory: Denies cough Gastrointestinal: Gastrointestinal: Denies abdominal pain Musculoskeletal: Musculoskeletal: Denies abnormal gait, Denies muscle cramps and Denies radiating pain into limb Integumentary/Breasts: Skin/Breast: Denies skin ulcer and Denies wounds Neurologic: Reports Normal hearing present and Denies abnormal gait Psychiatric: Psychiatric: Reports no additional psychiatric complaints PMFSH Past Medical History Medical History HTN (hypertension) HLD (hyperlipidemia) Non-insulin dependent type 2 diabetes mellitus Wound of foot Osteomyelitis Family History Family history: reviewed and not pertinent Social History Social History Household Members: Family Housing: House Do you presently have visiting nurse or other home services: No Alcohol intake: never Patient Tobacco Use Status: Never used Tobacco service: No Meds Allergies Allergy/AdvReac Type Severity Reaction Status Date / Time No Known Allergies Allergy Verified 10/17/23 11:03 Active Medications: Current Medications Acetaminophen (Acetaminophen 325 Mg Tablet) 650 mg PO Q6H PRN PRN Reason: Pain, Mild (Pain Scale 1-3), fever or headache Atorvastatin Calcium (Atorvastatin Calcium 20 Mg Tablet) 20 mg PO DAILY [facility] Last Admin: 10/19/23 07:50 Dose: 20 mg Benzonatate (Benzonatate 100 Mg Capsule) 100 mg PO TID PRN PRN Reason: Cough Calcium Carbonate (Calcium Carbonate 750 Mg Tab.Chew) 750 mg PO Q4H PRN PRN Reason: Heartburn Empagliflozin (Empagliflozin 25 Mg Tablet) 25 mg PO DAILY [facility] Last Admin: 10/19/23 07:50 Dose: 25 mg Enoxaparin Sodium (Enoxaparin Sodium 40 Mg/0.4 Ml Syringe) 40 mg SUBCUT Q24H [facility] Last Admin: 10/18/23 18:02 Dose: 40 mg Glucose (Glucose Gel 15 Gm Gel..Gram.) 15 gm PO Q15M PRN; Protocol PRN Reason: per Hypoglycemia Standing Ord. Piperacillin Sod/Tazobactam (Sod 3.375 gm/ Sodium Chloride) 50 mls @ 100 mls/hr IV Q6H [facility] Last Infusion: 10/19/23 08:57 Dose: Infused Dextrose (D10) 250 mls @ 750 mls/hr IV Q15M PRN; Protocol PRN Reason: per Hypoglycemia Standing Ord. Vancomycin HCl 1,500 mg/ (Sodium Chloride) 500 mls @ 333.333 mls/hr IV Q12H [facility] Last Infusion: 10/18/23 23:43 Dose: Infused Insulin Human Lispro (Insulin Lispro 100 Unit/Ml 3 Ml Vial) 0 unit SUBCUT QIDACHS [facility]; Protocol Last Admin: 10/19/23 07:34 Dose: Not Given Losartan Potassium (Losartan Potassium 50 Mg Tablet) 50 mg PO DAILY [facility]; Protocol Last Admin: 10/19/23 07:50 Dose: 50 mg Magnesium Hydroxide (Milk Of Magnesia 30 Ml Oral.Susp) 30 ml PO DAILY PRN PRN Reason: Constipation Melatonin (Melatonin 3 Mg Tablet) 6 mg PO BEDTIME PRN PRN Reason: Insomnia Metoprolol Succinate (Metoprolol Succinate Er 50 Mg Tab.Er.24h) 50 mg PO DAILY [facility]; Protocol Last Admin: 10/19/23 07:49 Dose: 50 mg Multivitamins/Vitamin C (Multivitamin Tablet) 1 tab PO DAILY [facility] Last Admin: 10/19/23 07:46 Dose: 1 tab Ondansetron HCl (Ondansetron Hcl 4 Mg/2 Ml Vial) 4 mg IVPUSH Q8H PRN PRN Reason: Nausea and Vomiting Pharmacy Consult (Consult Rx Vancomycin Dosing) 1 each MISCELLANE DAILY PRN PRN Reason: Consult order Pioglitazone HCl (Pioglitazone Hcl 30 Mg Tablet) 30 mg PO DAILY [facility] Last Admin: 10/19/23 07:46 Dose: 30 mg Sodium Chloride (0.9 % Sodium Chloride Flush 3 Ml Syringe) 3 ml IVFLUSH QSHIFT [facility] Last Admin: 10/18/23 22:13 Dose: 3 ml Home Medications ?Medication ?Instructions ?Recorded ?Confirmed ?Last Taken ?Type atorvastatin 20 mg tablet 20 mg PO DAILY 03/24/22 10/17/23 10/17/23 History empagliflozin 25 mg tablet 25 mg PO DAILY 03/24/22 10/17/23 10/17/23 History (Jardiance) losartan 50 mg tablet 50 mg PO DAILY 03/24/22 10/17/23 10/17/23 History metformin 1,000 mg tablet 1,000 mg PO BID 03/24/22 10/17/23 10/17/23 History metoprolol succinate 50 mg 50 mg PO DAILY 03/24/22 10/17/23 10/17/23 History tablet,extended release 24 hr pioglitazone 30 mg tablet 30 mg PO DAILY 03/24/22 10/17/23 10/17/23 History cephalexin 500 mg capsule 500 mg PO TID 10/17/23 10/17/23 10/17/23 15:00 History multivitamin with minerals-folic 1 tab PO DAILY 10/17/23 10/17/23 10/17/23 History acid 200 mcg chewable tablet (Multivitamin Gummies) Physical Exam 2 Vital Signs: Vital Signs: Last Vital Signs Temp 97.9 F 10/19/23 07:59 Pulse 60 10/19/23 07:49 Resp 18 10/19/23 07:59 BP 166/72 H 10/19/23 07:50 Pulse Ox 97 10/19/23 07:59 O2 Del Method Room Air 10/19/23 07:59 BMI result Body Mass Index 39.7 Const: General: cooperative, healthy appearing and comfortable O rientation/consciousness: oriented to person, oriented to place and oriented to time HEENT: Head: Yes normal to inspection Neck: Neck: Yes normal visual inspection Carotids: no bruits Chest: Chest palpation & inspection: normal inspection of the chest Resp: Effort & Inspection: normal respiratory effort and able to speak in complete sentences Auscultation: clear to auscultation bilaterally, no crackles, no rales, no rhonchi and no wheezes Cardio: Rate: regular rate Rhythm: regular rhythm Heart sounds: S1 normal heart sound present and S2 normal heart sound present Bruits: no carotid bruits Peripheral pulses: Peripheral pulses 2+ throughout GI: Inspection: Yes normal to inspection Skin: Other: Left 2nd toe blister has opened. Skin is dry. Plantar ulcer approximately 0.5 cm in diameter and appears to be clean. Wounds: no wounds Hair: normal Neuro: General: oriented to person, oriented to place and oriented to time Cranial nerves: Yes CN's II-XII intact bilaterally and Yes Normal hearing present Cognition (Neuro): normal cognition Motor exam (neuro): 5/5 motor strength present throughout Extrem: Other: venous exam: No significant superficial varicosities or spider telangiectasias, minimal edema General: No clubbing, No cyanosis and No edema Psych: Appearance: grossly normal Mental Status: mental status grossly normal Speech and movement: Normal speech and movement present Results Labs 10/17/23 12:08 10/19/23 05:34 Labs: Abnormal lab results 10/18/23 10/18/23 10/18/23 Range/Units 11:04 15:58 20:19 POC Glucose 142 H 124 H 125 H (60-115) mg/dL BMP 10/19/23 05:34 Creatinine 0.77 All other labs normal. Imaging Additional studies: Noninvasive arterial testing with JULITA 1.13 on the right and 1.08 on the left. Images reviewed only as written report was not available Assessment and Plan (1) Wound of foot: Status: Acute Left foot wound appears to be clean and stable. Continue with local wound care. Can follow-up with wound care center as an outpatient (2) PAD (peripheral artery disease): Status: Acute Plan Normal arterial flow down the left leg. Palpable pulses noted. Along with noninvasive arterial testing which appears to be within normal limits. At the current time would only recommend antibiotic therapy and local wound care. I do think this will be a salvageable situation. Thank you for allowing us to participate in his care. If there are any questions or concerns please do not hesitate to contact us Procedures Date of Service Date of Service: 10/19/23
[2023-10-19 09:40] LABS: Vancomycin Random 18.1 mcg/mL (15-20)
--- NOTE | 2023-10-19 09:47 | HE.PHANOTE ---
Re Vanc Trough came back at 18.1. With current renal function, will rise to ~20.6 mg/L with and AUC of 623 mg/L. Will reduce dose to 1250 mg Q12H for a projected trough of 17.2 mg/L and AUC of 522 mg/L. Next level ordered for 10/19 @ 0900.
[2023-10-19] MEDS: vancomycin HCL 1,250 MG in 0.9 % Sodium Chloride 250 ML 166.67 MG IV ×2 (11:00→22:23)
[2023-10-19 11:15] LABS: Glucose, Whole Blood 133 mg/dL (60-115)
[2023-10-19] MEDS: 0.9 % Sodium Chloride Flush 3 ML SYRINGE IVFLUSH ×2 (13:32→19:47)
--- NOTE | 2023-10-19 15:39 | MHC.CM.PN ---
EMR reviewed and per MD rounds, pt is not medically cleared due to management of osteomyelitis. Per ID pt will likely need 6 weeks IV antibiotics, referral placed [facility].
--- NOTE | 2023-10-19 15:52 | HO.PM.IMPN ---
Subjective Subjective Date of Service: 10/19/23 Interval History: foot cellulitis Review of Systems foot erythema improving denies any fevers or chills Physical Exam Vital Signs: Vital Signs: Last Vital Signs Temp 97.2 F 10/19/23 15:27 Pulse 54 10/19/23 15:27 Resp 20 10/19/23 15:27 BP 142/64 H 10/19/23 15:27 Pulse Ox 98 10/19/23 15:27 O2 Del Method Room Air 10/19/23 15:27 BMI result Body Mass Index 39.7 Appearance: Alert.? Oriented X3.? cvs: [id number], [id number] , no murmur res: clear to auscultation ,no rhonchii or wheezing abd: no rebound or guarding ,nt, bs present. ext pulses present , no cyanosis ,. neuro: axo3 , nonfocal. Objective Data Active Medications Acetaminophen (Acetaminophen 325 Mg Tablet) 650 mg PO Q6H PRN PRN Reason: Pain, Mild (Pain Scale 1-3), fever or headache Atorvastatin Calcium (Atorvastatin Calcium 20 Mg Tablet) 20 mg PO DAILY [facility] Last Admin: 10/19/23 07:50 Dose: 20 mg Documented By: REJI Benzonatate (Benzonatate 100 Mg Capsule) 100 mg PO TID PRN PRN Reason: Cough Calcium Carbonate (Calcium Carbonate 750 Mg Tab.Chew) 750 mg PO Q4H PRN PRN Reason: Heartburn Empagliflozin (Empagliflozin 25 Mg Tablet) 25 mg PO DAILY [facility] Last Admin: 10/19/23 07:50 Dose: 25 mg Documented By: REJI Enoxaparin Sodium (Enoxaparin Sodium 40 Mg/0.4 Ml Syringe) 40 mg SUBCUT Q24H [facility] Last Admin: 10/18/23 18:02 Dose: 40 mg Documented By: REJI Glucose (Glucose Gel 15 Gm Gel..Gram.) 15 gm PO Q15M PRN; Protocol PRN Reason: per Hypoglycemia Standing Ord. Piperacillin Sod/Tazobactam (Sod 3.375 gm/ Sodium Chloride) 50 mls @ 100 mls/hr IV Q6H [facility] Last Infusion: 10/19/23 14:06 Dose: Infused Documented By: REJI Dextrose (D10) 250 mls @ 750 mls/hr IV Q15M PRN; Protocol PRN Reason: per Hypoglycemia Standing Ord. Vancomycin HCl 1,250 mg/ (Sodium Chloride) 250 mls @ 166.667 mls/hr IV Q12H [facility] Last Infusion: 10/19/23 12:38 Dose: Infused Documented By: REJI Insulin Human Lispro (Insulin Lispro 100 Unit/Ml 3 Ml Vial) 0 unit SUBCUT QIDACHS [facility]; Protocol Last Admin: 10/19/23 11:31 Dose: Not Given Documented By: REJI Non-Admin Reason: No Insulin Coverage Losartan Potassium (Losartan Potassium 50 Mg Tablet) 50 mg PO DAILY [facility]; Protocol Last Admin: 10/19/23 07:50 Dose: 50 mg Documented By: REJI Magnesium Hydroxide (Milk Of Magnesia 30 Ml Oral.Susp) 30 ml PO DAILY PRN PRN Reason: Constipation Melatonin (Melatonin 3 Mg Tablet) 6 mg PO BEDTIME PRN PRN Reason: Insomnia Metoprolol Succinate (Metoprolol Succinate Er 50 Mg Tab.Er.24h) 50 mg PO DAILY [facility]; Protocol Last Admin: 10/19/23 07:49 Dose: 50 mg Documented By: REJI Multivitamins/Vitamin C (Multivitamin Tablet) 1 tab PO DAILY [facility] Last Admin: 10/19/23 07:46 Dose: 1 tab Documented By: REJI Ondansetron HCl (Ondansetron Hcl 4 Mg/2 Ml Vial) 4 mg IVPUSH Q8H PRN PRN Reason: Nausea and Vomiting Pharmacy Consult (Consult Rx Vancomycin Dosing) 1 each MISCELLANE DAILY PRN PRN Reason: Consult order Pioglitazone HCl (Pioglitazone Hcl 30 Mg Tablet) 30 mg PO DAILY [facility] Last Admin: 10/19/23 07:46 Dose: 30 mg Documented By: REJI Sodium Chloride (0.9 % Sodium Chloride Flush 3 Ml Syringe) 3 ml IVFLUSH QSHIFT [facility] Last Admin: 10/19/23 13:32 Dose: 3 ml Documented By: REJI Labs 10/17/23 12:08 10/19/23 05:34 Labs: Laboratory Results - last 24 hr 10/18/23 10/18/23 10/19/23 15:58 20:19 05:34 Hold Purple Top SEE NOTE Estim Creat Clear Calc 138.3 Estimated GFR > 60 POC Glucose 124 H 125 H Random Vancomycin 0810/19/23 10/19/23 07:24 09:04 11:10 Hold Purple Top Estim Creat Clear Calc Estimated GFR POC Glucose 96 133 H Random Vancomycin 18.1 Microbiology Microbiology Results: Microbiology 10/17/23 12:08 Blood Culture - Preliminary Blood - Venous No growth after 48 hours. 10/17/23 18:00 Blood Culture - Preliminary Blood - Venous No growth after 24 hours. Assessment and Plan (1) Cellulitis of left foot: Status: Acute Assessment and Plan: 63-year-old male with a PMH significant for?HLD, HTN, [id number] type 2 diabetes with peripheral neuropathy, and hx of diabetic foot ulcers who [facility] for evaluation of left 2nd toe cellulitis. Pt will be admitted to the hospital for treatment and further evaluation of left foot cellulitis and likely left 2nd toe osteomyelitis that has failed outpatient therapy. Left foot cellulitis associated wth dm chronic diabetic foot ulcers x 3 months Left foot erythema and warmth x6 days, worsening while on cephalexin Left toe x-ray showing fracture/destruction at the base of proximal phalanx of 2nd toe. Elevated ESR 19 and CRP:17.13 continue vancomycin and Zosyn, started 10/17/2023, ID consult input Wound care consult Follow cultures Jit-ernacau-[id number] type 2 diabetes Sliding-scale insulin Continue Jardiance, pioglitazone Hold metformin HTN Continue losartan HLD Continue statin Obesity Class II Weight loss encouraged Full Code DVT Prophylaxis: Lovenox ongoing hospitalization need for treatment of?left foot cellulitis concerning for osteomyelitis that has failed outpatient therapy. Patient will require treatment with IV antibiotics specialist consultation with Infectious Disease. Quality Stroke Does the patient have a stroke diagnosis?: No VTE Prior VTE?: No VTE Risk Level:: Medical - moderate - high VTE Device Contraindication: Treatment Not Indicated VTE Drug Contraindication: N/A - Med Ordered
[2023-10-19 15:54] LABS: Glucose, Whole Blood 115 mg/dL (60-115)
[2023-10-19] MEDS: Enoxaparin Sodium 40 MG/0.4 ML SYRINGE SUBCUT (18:27)
[2023-10-19 20:03] LABS: Glucose, Whole Blood 131 mg/dL (60-115)
[2023-10-20] VITALS (7 sets, daily range): BP systolic 135–166; BP diastolic 61–73; PULSE 52–64; RESP 14–18; TEMP 36.1–36.6; O2SAT 96–99
[2023-10-20] MEDS: Piperacillin Sodium/Tazobactam 3.375 GM in 0.9 % Sodium Chloride 50 ML IV (02:19)
[2023-10-20 07:32] LABS: Creatinine Clr Calc Pharmacy 129.9; Estimated Glomerular Filt Rate > 60
[2023-10-20 07:35] LABS: Glucose, Whole Blood 92 mg/dL (60-115)
[2023-10-20] MEDS: Losartan Potassium 50 MG TABLET PO (08:13)
[2023-10-20] MEDS: Metoprolol Succinate ER 50 MG TAB.ER.24H PO (08:13)
[2023-10-20] MEDS: Pioglitazone HCL 30 MG TABLET PO (08:13)
[2023-10-20] MEDS: Atorvastatin Calcium 20 MG TABLET PO (08:14)
[2023-10-20] MEDS: Empagliflozin 25 MG TABLET PO (08:14)
[2023-10-20] MEDS: 0.9 % Sodium Chloride Flush 3 ML SYRINGE IVFLUSH ×2 (08:14→15:04)
[2023-10-20] MEDS: Multivitamin TABLET 1 TAB PO (08:15)
[2023-10-20] MEDS: DAPTOmycin 600 MG in 0.9 % Sodium Chloride 50 ML 124 MG IV (09:14)
[2023-10-20 09:26] LABS: Vancomycin Random 18.9 mcg/mL (15-20)
[2023-10-20 11:01] LABS: Glucose, Whole Blood 112 mg/dL (60-115)
--- NOTE | 2023-10-20 12:34 | HO.PM.IMPN ---
Subjective Subjective Date of Service: 10/20/23 Interval History: possible foot osteomyelitis Review of Systems foot erythema ,pain improving no fevers Physical Exam Vital Signs: Vital Signs: Last Vital Signs Temp 97.1 F 10/20/23 10:46 Pulse 58 10/20/23 10:46 Resp 16 10/20/23 10:46 BP 149/69 H 10/20/23 10:46 Pulse Ox 99 10/20/23 10:46 O2 Del Method Room Air 10/20/23 10:46 BMI result Body Mass Index 39.7 Appearance: Alert.? Oriented X3.? cvs: rrr, [id number] , no murmur res: clear to auscultation ,no rhonchii or wheezing abd: no rebound or guarding ,nt, bs present. ext pulses present , no cyanosis ,. neuro: axo3 , nonfocal. Objective Data Active Medications Acetaminophen (Acetaminophen 325 Mg Tablet) 650 mg PO Q6H PRN PRN Reason: Pain, Mild (Pain Scale 1-3), fever or headache Atorvastatin Calcium (Atorvastatin Calcium 20 Mg Tablet) 20 mg PO DAILY [facility] Last Admin: 10/20/23 08:14 Dose: 20 mg Documented By: LEAH Benzonatate (Benzonatate 100 Mg Capsule) 100 mg PO TID PRN PRN Reason: Cough Calcium Carbonate (Calcium Carbonate 750 Mg Tab.Chew) 750 mg PO Q4H PRN PRN Reason: Heartburn Empagliflozin (Empagliflozin 25 Mg Tablet) 25 mg PO DAILY [facility] Last Admin: 10/20/23 08:14 Dose: 25 mg Documented By: LEAH Enoxaparin Sodium (Enoxaparin Sodium 40 Mg/0.4 Ml Syringe) 40 mg SUBCUT Q24H [facility] Last Admin: 10/19/23 18:27 Dose: 40 mg Documented By: EWELINA Glucose (Glucose Gel 15 Gm Gel..Gram.) 15 gm PO Q15M PRN; Protocol PRN Reason: per Hypoglycemia Standing Ord. Dextrose (D10) 250 mls @ 750 mls/hr IV Q15M PRN; Protocol PRN Reason: per Hypoglycemia Standing Ord. Daptomycin 600 mg/ Sodium (Chloride) 62 mls @ 124 mls/hr IV Q24H [facility] Last Infusion: 10/20/23 09:50 Dose: Infused Documented By: LEAH Insulin Human Lispro (Insulin Lispro 100 Unit/Ml 3 Ml Vial) 0 unit SUBCUT QIDACHS [facility]; Protocol Last Admin: 10/20/23 11:15 Dose: Not Given Documented By: LEAH Non-Admin Reason: No Insulin Coverage Losartan Potassium (Losartan Potassium 50 Mg Tablet) 50 mg PO DAILY [facility]; Protocol Last Admin: 10/20/23 08:13 Dose: 50 mg Documented By: LEAH Magnesium Hydroxide (Milk Of Magnesia 30 Ml Oral.Susp) 30 ml PO DAILY PRN PRN Reason: Constipation Melatonin (Melatonin 3 Mg Tablet) 6 mg PO BEDTIME PRN PRN Reason: Insomnia Metoprolol Succinate (Metoprolol Succinate Er 50 Mg Tab.Er.24h) 50 mg PO DAILY [facility]; Protocol Last Admin: 10/20/23 08:13 Dose: 50 mg Documented By: LEAH Multivitamins/Vitamin C (Multivitamin Tablet) 1 tab PO DAILY [facility] Last Admin: 10/20/23 08:15 Dose: 1 tab Documented By: LEAH Ondansetron HCl (Ondansetron Hcl 4 Mg/2 Ml Vial) 4 mg IVPUSH Q8H PRN PRN Reason: Nausea and Vomiting Pioglitazone HCl (Pioglitazone Hcl 30 Mg Tablet) 30 mg PO DAILY [facility] Last Admin: 10/20/23 08:13 Dose: 30 mg Documented By: LEAH Sodium Chloride (0.9 % Sodium Chloride Flush 3 Ml Syringe) 3 ml IVFLUSH QSHIFT [facility] Last Admin: 10/20/23 08:14 Dose: 3 ml Documented By: LEAH Labs 10/17/23 12:08 10/20/23 06:08 Labs: Laboratory Results - last 24 hr 10/19/23 10/19/23 10/20/23 15:51 19:54 06:08 Estim Creat Clear Calc 129.9 Estimated GFR > 60 POC Glucose 115 131 H Total Creatine Kinase 49 Random Vancomycin 10/20/23 10/20/23 10/20/23 07:13 08:50 10:49 Estim Creat Clear Calc Estimated GFR POC Glucose 92 112 Total Creatine Kinase Random Vancomycin 18.9 Microbiology Microbiology Results: Microbiology 10/17/23 18:00 Blood Culture - Preliminary Blood - Venous No growth after 48 hours. 10/17/23 12:08 Blood Culture - Preliminary Blood - Venous No growth after 48 hours. Assessment and Plan (1) Cellulitis of left foot: Status: Acute Assessment and Plan: 63-year-old male with a PMH significant for?HLD, HTN, [id number] type 2 diabetes with peripheral neuropathy, and hx of diabetic foot ulcers who [facility] for evaluation of left 2nd toe cellulitis. Pt will be admitted to the hospital for treatment and further evaluation of left foot cellulitis and likely left 2nd toe osteomyelitis that has failed outpatient therapy. Left foot cellulitis associated wth dm chronic diabetic foot ulcers x 3 months Left foot erythema and warmth x6 days, worsening while on cephalexin Left toe x-ray showing fracture/destruction at the base of proximal phalanx of 2nd toe. Elevated ESR 19 and CRP:17.13 continue vancomycin and Zosyn, started 10/17/2023- today antibiotics switched to daptomycin . ID eval noted. Wound care following: Left 2nd Toe - Cleanse with Ns moist gauze, pat dry. Apply xeroform to wound bed cover with dry gauze wrap. Change daily. Left Plantar wound - Elevate lower leg - limit / minimize direct pressure such as with walking. Cleanse with NS moist gauze, pat dry. Lightly pack with Durafiber AG, cover with foam dressing. Change every 3 days. Jps-jgpiuzm-gfuxsmnka type 2 diabetes Sliding-scale insulin Continue Jardiance, pioglitazone Hold metformin HTN Continue losartan HLD Continue statin Obesity Class II Weight loss encouraged Full Code DVT Prophylaxis: Lovenox ongoing hospitalization need for treatment of?left foot cellulitis concerning for osteomyelitis that has failed outpatient therapy. Patient will require treatment with IV antibiotics specialist consultation with Infectious Disease. Quality Stroke Does the patient have a stroke diagnosis?: No VTE Prior VTE?: No VTE Risk Level:: Medical - moderate - high VTE Device Contraindication: Treatment Not Indicated VTE Drug Contraindication: N/A - Med Ordered
[2023-10-20 17:17] LABS: Glucose, Whole Blood 118 mg/dL (60-115)
[2023-10-20] MEDS: Enoxaparin Sodium 40 MG/0.4 ML SYRINGE SUBCUT (18:10)
[2023-10-20 20:12] LABS: Glucose, Whole Blood 125 mg/dL (60-115)
[2023-10-21 03:20] VITALS: BP 138/63; PULSE 58; RESP 16; TEMP 36.7; O2SAT 98
[2023-10-21 07:20] VITALS: BP 155/70; PULSE 62; RESP 16; TEMP 37.2; O2SAT 96
[2023-10-21 07:41] LABS: Glucose, Whole Blood 98 mg/dL (60-115)
[2023-10-21 08:16] VITALS: BP 155/70
[2023-10-21] MEDS: Pioglitazone HCL 30 MG TABLET PO (08:16)
[2023-10-21] MEDS: Multivitamin TABLET 1 TAB PO (08:16)
[2023-10-21] MEDS: Metoprolol Succinate ER 50 MG TAB.ER.24H PO (08:16)
[2023-10-21] MEDS: Empagliflozin 25 MG TABLET PO (08:16)
[2023-10-21] MEDS: Losartan Potassium 50 MG TABLET PO (08:16)
[2023-10-21] MEDS: Atorvastatin Calcium 20 MG TABLET PO (08:16)
[2023-10-21] MEDS: DAPTOmycin 600 MG in 0.9 % Sodium Chloride 50 ML 124 MG IV (08:17)
[2023-10-21] MEDS: 0.9 % Sodium Chloride Flush 3 ML SYRINGE IVFLUSH ×2 (08:17→17:00)
[2023-10-21 11:11] LABS: Glucose, Whole Blood 173 mg/dL (60-115)
--- NOTE | 2023-10-21 11:33 | HO.PM.IMPN ---
Subjective Subjective Date of Service: 10/21/23 Interval History: possible foot osteomyelitis Review of Systems foot erythema and pain improving denies any chest pain or sob. Physical Exam Vital Signs: Vital Signs: Last Vital Signs Temp 98.9 F 10/21/23 07:20 Pulse 62 10/21/23 07:20 Resp 16 10/21/23 07:20 BP 155/70 H 10/21/23 08:16 Pulse Ox 96 10/21/23 07:20 O2 Del Method Room Air 10/21/23 07:20 BMI result Body Mass Index 39.7 Appearance: Alert.? Oriented X3.? cvs: rrr, [id number] , no murmur res: clear to auscultation ,no rhonchii or wheezing abd: no rebound or guarding ,nt, bs present. ext pulses present , no cyanosis ,. neuro: axo3 , nonfocal. Objective Data Active Medications Acetaminophen (Acetaminophen 325 Mg Tablet) 650 mg PO Q6H PRN PRN Reason: Pain, Mild (Pain Scale 1-3), fever or headache Atorvastatin Calcium (Atorvastatin Calcium 20 Mg Tablet) 20 mg PO DAILY [facility] Last Admin: 10/21/23 08:16 Dose: 20 mg Documented By: LEAH Benzonatate (Benzonatate 100 Mg Capsule) 100 mg PO TID PRN PRN Reason: Cough Calcium Carbonate (Calcium Carbonate 750 Mg Tab.Chew) 750 mg PO Q4H PRN PRN Reason: Heartburn Empagliflozin (Empagliflozin 25 Mg Tablet) 25 mg PO DAILY [facility] Last Admin: 10/21/23 08:16 Dose: 25 mg Documented By: LEAH Enoxaparin Sodium (Enoxaparin Sodium 40 Mg/0.4 Ml Syringe) 40 mg SUBCUT Q24H [facility] Last Admin: 10/20/23 18:10 Dose: 40 mg Documented By: LEAH Glucose (Glucose Gel 15 Gm Gel..Gram.) 15 gm PO Q15M PRN; Protocol PRN Reason: per Hypoglycemia Standing Ord. Dextrose (D10) 250 mls @ 750 mls/hr IV Q15M PRN; Protocol PRN Reason: per Hypoglycemia Standing Ord. Daptomycin 600 mg/ Sodium (Chloride) 62 mls @ 124 mls/hr IV Q24H [facility] Last Infusion: 10/21/23 09:09 Dose: Infused Documented By: LEAH Insulin Human Lispro (Insulin Lispro 100 Unit/Ml 3 Ml Vial) 0 unit SUBCUT QIDACHS [facility]; Protocol Last Admin: 10/21/23 07:44 Dose: Not Given Documented By: LEAH Non-Admin Reason: No Insulin Coverage Losartan Potassium (Losartan Potassium 50 Mg Tablet) 50 mg PO DAILY [facility]; Protocol Last Admin: 10/21/23 08:16 Dose: 50 mg Documented By: LEAH Magnesium Hydroxide (Milk Of Magnesia 30 Ml Oral.Susp) 30 ml PO DAILY PRN PRN Reason: Constipation Melatonin (Melatonin 3 Mg Tablet) 6 mg PO BEDTIME PRN PRN Reason: Insomnia Metoprolol Succinate (Metoprolol Succinate Er 50 Mg Tab.Er.24h) 50 mg PO DAILY [facility]; Protocol Last Admin: 10/21/23 08:16 Dose: 50 mg Documented By: LEAH Multivitamins/Vitamin C (Multivitamin Tablet) 1 tab PO DAILY [facility] Last Admin: 10/21/23 08:16 Dose: 1 tab Documented By: LEAH Ondansetron HCl (Ondansetron Hcl 4 Mg/2 Ml Vial) 4 mg IVPUSH Q8H PRN PRN Reason: Nausea and Vomiting Pioglitazone HCl (Pioglitazone Hcl 30 Mg Tablet) 30 mg PO DAILY [facility] Last Admin: 10/21/23 08:16 Dose: 30 mg Documented By: LEAH Sodium Chloride (0.9 % Sodium Chloride Flush 3 Ml Syringe) 3 ml IVFLUSH QSHIFT [facility] Last Admin: 10/21/23 08:17 Dose: 3 ml Documented By: LEAH Labs 10/17/23 12:08 10/20/23 06:08 Labs: Laboratory Results - last 24 hr 10/20/23 10/20/23 10/21/23 17:13 20:06 07:23 POC Glucose 118 H 125 H 98 10/21/23 11:02 POC Glucose 173 H Assessment and Plan (1) Cellulitis of left foot: Status: Acute Assessment and Plan: 63-year-old male with a PMH significant for?HLD, HTN, uev-rrpzmrd-ebtnbhvqq type 2 diabetes with peripheral neuropathy, and hx of diabetic foot ulcers who presents [facility] the ED from [facility] for evaluation of left 2nd toe cellulitis. Pt will be admitted to the hospital for treatment and further evaluation of left foot cellulitis and likely left 2nd toe osteomyelitis that has failed outpatient therapy. Left foot cellulitis associated wth dm chronic diabetic foot ulcers x 3 months Left foot erythema and warmth x6 days, worsening while on cephalexin Left toe x-ray showing fracture/destruction at the base of proximal phalanx of 2nd toe. Elevated ESR 19 and CRP:17.13 continue vancomycin and Zosyn, started 10/17/2023- today antibiotics switched to daptomycin . ID eval noted. Wound care following: Left 2nd Toe - Cleanse with Ns moist gauze, pat dry. Apply xeroform to wound bed cover with dry gauze wrap. Change daily. Left Plantar wound - Elevate lower leg - limit / minimize direct pressure such as with walking. Cleanse with NS moist gauze, pat dry. Lightly pack with Durafiber AG, cover with foam dressing. Change every 3 days. Ahi-rzwjprz-dadopwzcy type 2 diabetes Sliding-scale insulin Continue Jardiance, pioglitazone Hold metformin HTN Continue losartan HLD Continue statin Obesity Class II Weight loss encouraged Full Code DVT Prophylaxis: Lovenox ongoing hospitalization need for treatment of?left foot cellulitis concerning for osteomyelitis that has failed outpatient therapy. Patient will require treatment with IV antibiotics specialist consultation with Infectious Disease. need picc line Quality Stroke Does the patient have a stroke diagnosis?: No VTE Prior VTE?: No VTE Risk Level:: Medical - moderate - high VTE Device Contraindication: Treatment Not Indicated VTE Drug Contraindication: N/A - Med Ordered
[2023-10-21] MEDS: Insulin Lispro 100 UNIT/ML 3 ML VIAL SUBCUT (11:54)
--- NOTE | 2023-10-21 12:45 | PC.NURSE ---
Left foot dressing changed as per orders
[2023-10-21 15:28] VITALS: BP 171/74; PULSE 54; RESP 18; TEMP 36.2; O2SAT 94
[2023-10-21 16:10] LABS: Glucose, Whole Blood 114 mg/dL (60-115)
[2023-10-21] MEDS: Enoxaparin Sodium 40 MG/0.4 ML SYRINGE SUBCUT (18:18)
[2023-10-21 19:04] VITALS: BP 129/71; PULSE 57; RESP 18; TEMP 36; O2SAT 96
[2023-10-21 19:55] LABS: Glucose, Whole Blood 150 mg/dL (60-115)
[2023-10-22] VITALS (8 sets, daily range): BP systolic 131–173; BP diastolic 68–89; PULSE 56–60; RESP 14–20; TEMP 36.1–36.6; O2SAT 95–97
[2023-10-22 07:49] LABS: Glucose, Whole Blood 108 mg/dL (60-115)
[2023-10-22] MEDS: Metoprolol Succinate ER 50 MG TAB.ER.24H PO (09:22)
[2023-10-22] MEDS: Empagliflozin 25 MG TABLET PO (09:22)
[2023-10-22] MEDS: Pioglitazone HCL 30 MG TABLET PO (09:22)
[2023-10-22] MEDS: Atorvastatin Calcium 20 MG TABLET PO (09:22)
[2023-10-22] MEDS: Multivitamin TABLET 1 TAB PO (09:22)
[2023-10-22] MEDS: 0.9 % Sodium Chloride Flush 3 ML SYRINGE IVFLUSH (09:23)
[2023-10-22] MEDS: DAPTOmycin 600 MG in 0.9 % Sodium Chloride 50 ML 124 MG IV (09:23)
[2023-10-22] MEDS: Losartan Potassium 50 MG TABLET PO (09:24)
[2023-10-22 11:18] LABS: Glucose, Whole Blood 141 mg/dL (60-115)
--- NOTE | 2023-10-22 12:04 | P.DS_ITS ---
DS: Providers Provider Date of Service: 10/22/23 Date of admission: 10/17/23 18:48 Date of discharge: 10/22/23 Primary care physician: Leo Lieberman MD Admitting clinician: Mauro Neri Attending physician on admission: Mauro Neri Consults: 10/17/23 18:48 Consult to Infectious Diseases Routine Consulting Provider: [facility] Reason for consultation: Left 2nd toe infection, ?osteo Consult to Wound Care Routine Reason for consultation: Left 2nd toe infection, diabetic foot ulcer, ?osteo 10/18/23 11:05 Consult to Vascular Surgery Routine Consulting Provider: [facility] Reason for consultation: Dm foot infection Has provider been notified: No DS: Diagnosis Discharge Diagnosis (1) Cellulitis of left foot: Status: Acute DS: Summary Hospital Course Hospital Course: 63-year-old male with a PMH significant for?HLD, HTN, ryh-otgaeth-vxulvydes type 2 diabetes with peripheral neuropathy, and hx of diabetic foot ulcers who presents to the ED from [facility] for evaluation of left 2nd toe cellulitis. Pt has had a history of 5-6 diabetic foot ulcers over the past 20 years. First noticed current foot ulcer approximately 2 months ago. 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 Reports things went well for the first week but developed redness on second toe 6 days ago. Was seen again at wound care and started on cephalexin 5 days ago which he reports has been compliant with. Earlier today patient noticed clear discharge from the toe and redness had spread to surrounding digits into the dorsal aspect of the foot. Was seen again by Dr. Freitas in [facility] who advised patient to come to the ED for further evaluation and likely hospitalization for IV antibiotics. Patient also reports left leg has been swollen for the past week, though improved for the past few days. Denies any foot pain due to neuropathy. No fever or chills. Denies nausea or vomiting. No chest pain, SOB, or abdominal pain. In the ED pt was hypertensive up to 184/76, otherwise vitals WNL. Labs were significant ESR 19, and CRP 17.13. No leukocytosis. Stable H& H. No significant electrolyte abnormalities. Renal function baseline. Hepatic function baseline. X-ray of left foot showed fracture/destruction at the base of the proximal phalanx of 2nd toe. Pt was treated with vancomycin and Zosyn. Pt will be admitted to the hospital for treatment and further evaluation of left foot cellulitis and likely left 2nd toe osteomyelitis that has failed outpatient therapy. Hospital course: Patient was admitted for possible cellulitis/osteomyelitis foot: Started on IV antibiotics, blood cultures sent, also consulted vascular and Infectious Disease, Wound Care: Foot x-ray shows possible osteomyelitis, blood culture negative: Id recommended IV daptomycin daily for 6 weeks. In addition vascular and Wound Care saw the patient-wound care rest instructions are as above, vascular recommended:Palpable pulses noted. Along with noninvasive arterial testing which appears to be within normal limits. At the current time would only recommend antibiotic therapy and local wound care. discussed with patient and [facility]-recomended to hold statin until on daptomycin. Patient was admitted for possible cellulitis/osteomyelitis foot: Started on IV antibiotics, blood cultures sent, also consulted vascular and Infectious Disease, Wound Care: Foot x-ray shows possible osteomyelitis, blood culture negative: Id recommended IV daptomycin daily for 6 weeks. In addition vascular and Wound Care saw the patient-wound care rest instructions are as above, vascular recommended:Palpable pulses noted. Along with noninvasive arterial testing which appears to be within normal limits. At the current time would only recommend antibiotic therapy and local wound care. Consider CBC, CMP,CPK,ESR, CRP Q weekly while on antibiotics. Patient picc line placed wound care instructions: please see dc instruction section. Plan: complete 600 mg IV daptomycin daily for 6 weeks- end date 12/01/23. Consider CBC, CMP, ESR, CRP Q weekly while on antibiotics. Assessment plan coordination time spent 40 minute. Above management discussed with the patient he understand and in agreement with the above plan. Time Attestation Total time managing care of this patient today: 40 mintues. Discharge Coordination Time (in mins): 40 min Quality: Safe Use of Opioids Does Pt have an Active Cancer Diagnosis on the Problem List?: No Quality: Stroke Does the patient have a stroke diagnosis?: No Physical Exam Vital Signs: Vital Signs: Last Vital Signs Temp 97.7 F 10/22/23 08:00 Pulse 56 10/22/23 08:00 Resp 14 10/22/23 08:00 BP 173/76 H 10/22/23 09:24 Pulse Ox 96 10/22/23 08:00 O2 Del Method Room Air 10/22/23 08:00 BMI result Body Mass Index 39.7 Appearance: Alert.? Oriented X3.? cvs: rrr, [id number] , no murmur res: clear to auscultation ,no rhonchii or wheezing abd: no rebound or guarding ,nt, bs present. ext pulses present , no cyanosis left foot erythema /swelling improved significantly , no flacutation or discharge. neuro: axo3 , nonfocal. DS: Data Data Completed and Pending Labs on day of discharge: Laboratory Results - last 24 hr 10/21/23 10/21/23 10/22/23 16:04 19:45 07:32 POC Glucose 114 150 H 108 10/22/23 11:14 POC Glucose 141 H Preliminary micro results at discharge 10/17/23 18:00 Blood Culture - Preliminary Blood - Venous No growth after 48 hours. 10/17/23 12:08 Blood Culture - Preliminary Blood - Venous No growth after 48 hours. Imaging Chest x-ray: Radiologist's impression: ITS Impressions Toe X-Ray 10/17/23 11:05 IMPRESSION: Fracture/destruction of the base of the proximal phalanx of second toe on the left Electronically signed by: Beatriz Hoffmann MD 10/17/2023 04:24 PM EDT RP Abd US [id number] 10/18/23 17:07 IMPRESSION: Right leg: Normal ankle brachial index and PVR waveform. Unremarkable duplex arterial ultrasound without significant arterial stenosis or occlusion. Left leg: Normal ankle brachial index and PVR waveform. Unremarkable duplex arterial ultrasound without significant arterial stenosis or occlusion. JULITA Reference: - >1.4 = calcified vessels - 0.9 - 1.4 = normal - no significant arterial disease - 0.7 - 0.89 = mild peripheral arterial disease - 0.51 - 0.69 = moderate peripheral arterial disease - d 0.50 = severe peripheral arterial disease - < .30 = critical arterial disease Electronically signed by: Mathieu Pelaez MD 10/19/2023 02:15 PM EDT RP Duplex Scan Lower Extremity Artery 10/18/23 17:07 IMPRESSION: Right leg: Normal ankle brachial index and PVR waveform. Unremarkable duplex arterial ultrasound without significant arterial stenosis or occlusion. Left leg: Normal ankle brachial index and PVR waveform. Unremarkable duplex arterial ultrasound without significant arterial stenosis or occlusion. JULITA Reference: - >1.4 = calcified vessels - 0.9 - 1.4 = normal - no significant arterial disease - 0.7 - 0.89 = mild peripheral arterial disease - 0.51 - 0.69 = moderate peripheral arterial disease - d 0.50 = severe peripheral arterial disease - < .30 = critical arterial disease Electronically signed by: Mathieu Pelaez MD 10/19/2023 02:15 PM EDT RP Discharge Plan Discharge Anticipated Discharge Date/Time: 10/22/23 11:58 Patient Disposition: Home Health Service Discharge Diagnosis: foot osteomyelitis Referrals: Leo Lieberman MD [Primary Care Provider] - 1 Week Discharge Medications: New daptomycin 350 mg Recon Soln 600 mg IV Q24H Qty: 40 0RF Rx Instructions: end date will be 11/30/24 Continued multivit with min-folic acid [Multivitamin Gummies] 200 mcg Tablet,Chewable 1 tab PO DAILY metformin 1,000 mg tablet 1,000 mg PO BID metoprolol succinate 50 mg tablet extended release 24 hr 50 mg PO DAILY Jardiance 25 mg tablet 25 mg PO DAILY losartan 50 mg tablet 50 mg PO DAILY pioglitazone 30 mg tablet 30 mg PO DAILY Hel[facility] atorvastatin 20 mg tablet 20 mg PO DAILY Hold Instructions: Resume on 11/30/23. Discontinued cephalexin 500 mg capsule 500 mg PO TID Discharge Orders: Discharge Order (Routine); Ordered 10/22/23 Ordered By: Mauro Neri Diet: low fat diet Activity on Discharge: As tolerated Stand Alone Forms: Patient Portal Discharge page Print Language: Georgian Activity Restrictions/Additional Instructions: Topical Wound Care Recommendations: Left 2nd Toe - Cleanse with Ns moist gauze, pat dry. Apply xeroform to wound bed cover with dry gauze wrap. Change daily. Left Plantar wound - Elevate lower leg - limit / minimize direct pressure such as with walking. Cleanse with NS moist gauze, pat dry. Lightly pack with Durafiber AG, cover with foam dressing. Change every 3 days. Recommend follow up out patient Wound Clinic at [address] [place] [id number] and to call for an appointment at time of discharge. [phone].? Care Plan Goals: Patient was admitted for possible cellulitis/osteomyelitis foot: Started on IV antibiotics, blood cultures sent, also consulted vascular and Infectious Disease, Wound Care: Foot x-ray shows possible osteomyelitis, blood culture negative: Id recommended IV daptomycin daily for 6 weeks. In addition vascular and Wound Care saw the patient-wound care rest instructions are as above, vascular recommended:Palpable pulses noted. Along with noninvasive arterial testing which appears to be within normal limits. At the current time would only recommend antibiotic therapy and local wound care. discussed with patient and [facility]-recomended to hold statin until on daptomycin. Consider CBC, CMP,CPK, ESR, CRP Q weekly while on antibiotics. Patient pending PICC line done. Health Concerns: As above. Plan of Treatment: As above. Assessment: As above.
--- NOTE | 2023-10-22 14:17 | MHC.CM.PN ---
Addendum entered by Aurora Greco 10/22/23 15:56: FLUSH ORDERS AND LABS SENT TO [facility] ONCE PICC REPORT IS SENT PT WILL BE ABLE TO DC HOME Original Note: PT WILL DC HOME WITH 6 WEEKS OF IV DAPTO PENDING PICC LINE PLACEMENT OZZY [facility]POKE TO ED [facility], SHE SAYS THE PT WILL HAVE A VIRTUAL TEACH TODAY AND THEY WILL DELIVER MEDS FOR TOMORROW ONCE COMPLETE SHE WILL RUN INSURANCE TO DETERMINE IF [facility] CAN PROVIDE NURSING, PT DOES NOT WANT A VNA HE PLANS TO RETURN TO WORK TOMORROW
[2023-10-22 16:56] LABS: Glucose, Whole Blood 145 mg/dL (60-115)
== END 2023-10-22 18:10 | disposition home health service (06) | DRG 344 ==
LOC: HO.ED 17:53 → HO.EDOVER 18:59 → HO.S3 23:05
PROVIDERS: Physician Assistant; Admitting Provider Student in an Organized Health Care Education/Training Program; Emergency Provider Emergency Medicine; PCP Internal Medicine; Visit Provider Internal Medicine
DX: E11.69 Type 2 diabetes mellitus with other specified complication (principal); M86.9 Osteomyelitis, unspecified; E11.628 Type 2 diabetes mellitus with other skin complications; L03.116 Cellulitis of left lower limb; E11.42 Type 2 diabetes mellitus with diabetic polyneuropathy; L97.429 Non-pressure chronic ulcer of left heel and midfoot with unspecified severity; E78.5 Hyperlipidemia, unspecified; I10 Essential (primary) hypertension; E66.8 Other obesity; Z68.39 Body mass index [BMI] 39.0-39.9, adult; Z79.84 Long term (current) use of oral hypoglycemic drugs; Z79.899 Other long term (current) drug therapy
CPT/HCPCS: 36415; 36573; 73660; 80053; 80202; 82550; 82565; 82947; 83605; 83690; 85025; 85652; 86140; 87040; 93923; 93925; 99285; C1751; J0878; J1650; J2543; J3370; J3371

== ENCOUNTER 2023-10-17 18:48 | Outpatient (BNV) | payer OTHER, SELFPAY | END 2023-10-22 16:25 | PROVIDERS: Admitting Provider Student in an Organized Health Care Education/Training Program; Emergency Provider Emergency Medicine; PCP Internal Medicine; Visit Provider Radiology Vascular & Interventional Radiology | DX: L03.116 Cellulitis of left lower limb (principal) | CPT/HCPCS: 36573 ==

== ENCOUNTER → 2023-10-17 18:48 | Outpatient (BNV) | payer OTHER, SELFPAY | PROVIDERS: Admitting Provider Student in an Organized Health Care Education/Training Program; Emergency Provider Emergency Medicine; PCP Internal Medicine; Visit Provider Surgery Vascular Surgery | DX: I73.9 Peripheral vascular disease, unspecified (principal); S91.302A Unspecified open wound, left foot, initial encounter | CPT/HCPCS: 99222 ==

== ENCOUNTER → 2023-10-17 18:48 | Outpatient (BNV) | payer OTHER, SELFPAY | PROVIDERS: Admitting Provider Student in an Organized Health Care Education/Training Program; Emergency Provider Emergency Medicine; PCP Internal Medicine; Visit Provider Internal Medicine | DX: M86.8X7 Other osteomyelitis, ankle and foot (principal) | CPT/HCPCS: 99222 ==

== ENCOUNTER → 2023-10-17 18:48 | Outpatient (BNV) | payer OTHER, SELFPAY | PROVIDERS: Admitting Provider Student in an Organized Health Care Education/Training Program; Emergency Provider Emergency Medicine; Visit Provider Student in an Organized Health Care Education/Training Program | DX: L03.116 Cellulitis of left lower limb (principal) | CPT/HCPCS: 99223; 99231; 99232; 99239 ==

== ENCOUNTER 2024-02-06 07:45 | Outpatient (RCR) | payer OTHER, SELFPAY ==
--- NOTE | ~2024-02-06 | XR_ITS ---
EXAMINATION: XR FOOT, LEFT CLINICAL INFORMATION: Nonhealing wound left foot COMPARISON: None available. TECHNIQUE: AP, lateral, and oblique views of the left foot. FINDINGS Possible plantar soft tissue defects mid and distal aspect of the foot on lateral view. No abnormal air collections or foreign bodies. Bones are demineralized. There is splaying between the first and second digits. There is a concave deformity distal lateral aspect of the great toe tuft. There is an indistinct region of bony cortex at the medial base of the great toe proximal phalanx with soft tissue prominence. No fractures or dislocations. XR/XR foot LT min 3V IMPRESSION: 1. Possible plantar soft tissue defects. 2. Question osteomyelitis great toe proximal phalanx. Consider MRI. Electronically signed by: Marialuisa Atkins MD 10/30/2023 01:47 PM EDT
== END 2024-03-20 15:25 | disposition home or self-care (01) ==
LOC: HO.WCC 07:45
PROVIDERS: PCP Internal Medicine; Visit Provider Surgery
DX: E11.621 Type 2 diabetes mellitus with foot ulcer (principal); L97.522 Non-pressure chronic ulcer of other part of left foot with fat layer exposed; Z79.84 Long term (current) use of oral hypoglycemic drugs; Z79.2 Long term (current) use of antibiotics; Z79.899 Other long term (current) drug therapy
CPT/HCPCS: 11042; 11044; 29445; 73630; 87070; 87073; 87077; 87186; 87205; 99212; 99213

== ENCOUNTER 2024-06-06 07:08 | Outpatient (REF) | payer OTHER, SELFPAY ==
[2024-06-06 10:39] LABS: Estimated Average Glucose 154 mg/dL; Hemoglobin A1C 209.5524 umol/L; Total Hemoglobin (HGBA1C) 3952.5088 umol/L
== END 2024-06-06 07:09 | disposition home or self-care (01) ==
LOC: HO.HMGCLDS 07:08
PROVIDERS: PCP Internal Medicine; Visit Provider Internal Medicine
DX: E11.9 Type 2 diabetes mellitus without complications (principal)
CPT/HCPCS: 36415; 83036

== ENCOUNTER 2024-07-09 07:52 | Outpatient (REF) | payer OTHER, SELFPAY ==
[2024-07-09 09:52] LABS: MANUAL DIFF FLAG NO
[2024-07-09 10:01] LABS: Basophils Percent Auto 0.9 % (0-2); Eosinophils Absolute Auto 0.2 X10*3/uL (0.0-0.4); Eosinophils Percent Auto 3.9 % (0-4); Hematocrit 39.7 % (42.0-52.0); Hemoglobin 14.9 g/dl (14.0-18.0); Imm Gran Abs Auto 0.01 X10*3/uL (0.00-0.03); Imm Gran Pct Auto 0.2 % (0.0-0.4); Lymphocytes Absolute Auto 1.4 X10*3/uL (1.2-4.9); Lymphocytes Percent Auto 30.6 % (20-40); Mean Corpuscular HGB Conc 37.5 g/dl (31.0-36.0); Mean Corpuscular Hemoglobin 40.4 pg (27.0-33.0); Mean Corpuscular Volume 107.6 fL (80.0-98.0); Monocytes Absolute Auto 0.5 X10*3/uL (0.1-1.2); Monocytes Percent Auto 11.5 % (2-11); Neutrophils Absolute Auto 2.4 x10*3/uL (2.0-8.3); Neutrophils Percent Auto 52.9 % (45-73); Platelet Count 219 X10*3/uL (160-400); Red Blood Count 3.69 X10*6/uL (4.60-5.80); Red Cell Distribution Width 16.3 % (11.0-16.0); White Blood Count 4.6 X10*3/uL (4.8-10.8)
[2024-07-09 10:30] LABS: Alanine Aminotransferase 21 U/L (0-40); Alkaline Phosphatase 63 U/L (39-117); Anion Gap 14 (12-20); Aspartate Amino Transferase 29 U/L (5-37); Bilirubin Total 0.7 mg/dL (0.0-1.0); Blood Urea Nitrogen 17 mg/dL (9-16); Calcium 9.1 mg/dL (8.4-10.2); Carbon Dioxide 25 mmol/L (22-29); Chloride 107 mmol/L (96-108); Cholesterol 166 mg/dL (<200); Estimated Glomerular Filt Rate > 60; Glucose Fasting 126 mg/dL (60-99); HDL Cholesterol 37 mg/dL (>40); LDL Cholesterol Calculated 93 mg/dL (<100); Potassium 4.7 mmol/L (3.3-5.1); Sodium 141 mmol/L (135-145); Total Protein 7.3 g/dL (6.5-8.0); Triglycerides 180 mg/dL (<150)
[2024-07-09 10:44] LABS: Prostate Specific Antigen Scr 1.46 ng/mL (<0.05-4.0)
== END 2024-07-09 07:53 | disposition home or self-care (01) ==
LOC: HO.HMGCLDS 07:52
PROVIDERS: PCP Internal Medicine; Visit Provider Internal Medicine
DX: Z00.00 Encounter for general adult medical examination without abnormal findings (principal); Z12.5 Encounter for screening for malignant neoplasm of prostate; R53.83 Other fatigue; E78.5 Hyperlipidemia, unspecified
CPT/HCPCS: 36415; 80053; 80061; 84153; 85025

== ENCOUNTER 2024-10-29 13:00 | Outpatient (AMB) | payer OTHER, SELFPAY ==
--- NOTE | 2024-10-29 13:16 | A.OFFPC_ITS ---
Vital Signs 10/29/24 13:29 Height 6 ft 1.25 in Weight 315 lb 0.8 oz BMI 41.3 BP 154/60 H Blood Pressure Location Rt brachial Pulse 64 Pulse Source Pulse Oximeter Temp 97.1 F Pulse Oximetry (%) 97 Intake Visit Reasons: Est. Digna Lieberman patient Allergies No Known Allergies Allergy (Verified 10/29/24 14:09) Medication List - Last Reconciled 10/29/24 by Sweta Lim PA-C atorvastatin (Lipitor) 20 mg PO BEDTIME 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 sensor (FreeStyle Andi 3 Plus Sensor device) Check glucose 3 times a day with meals 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,program assistant,cont (FreeStyle Andi 3 [place]) Check glucose 3 times a day with meals empagliflozin (Jardiance) 25 mg PO DAILY losartan 50 mg PO DAILY 90 days metformin 1,000 mg PO BID metoprolol succinate ER 50 mg PO DAILY multivit with min-folic acid 200 mcg (Multivitamin Gummies) 1 tab PO DAILY pioglitazone 30 mg PO DAILY semaglutide (Ozempic) 0.25 mg (0.368 mL) subcut QWEEK 1 month Dental Screening Did you have a dental visit in the last 12 months?: No Did you have a dental problem in the last 6 months where you did not have access to dental care?: No Was dental information given to patient?: No HPI Est. Digna Lieberman patient HPI Details The patient is a 64-year-old male presenting with a routine check-up and management of chronic conditions, including diabetes mellitus and hypertension. The patient has a history of diabetes mellitus, currently managed with Jardiance, metformin, and pioglitazone. He reports adherence to his medication regimen and has regular follow-ups with his healthcare provider. The patient also has hypertension, for which he is taking losartan and metoprolol. He has been advised to monitor his blood pressure regularly and maintain a diary for review during follow-up visits. Although he reports he ran out of his blood pressure medication losartan he has not taken this in over a month and did not take it today this could be the reason why his blood pressure is elevated today. The patient has a history of hyperlipidemia, managed with atorvastatin. Recent lipid panel results show total cholesterol at 166 mg/dL, LDL at 93 mg/dL, and HDL at 37 mg/dL. He has a history of anemia, with recent lab results indicating a slightly low white blood cell count and mild anemia. The patient denies significant alcohol consumption, which could contribute to these findings. The patient has a history of osteomyelitis, previously suspected but not confirmed through MRI. He has experienced foot ulcers, which have been managed with wound care. A heart murmur was detected during the physical examination, likely due to valve stiffening from hypertension. An ultrasound of the heart has been ordered to assess the condition further. Preventative care measures include a colon cancer screening with a stool test (Cologuard), which the patient has agreed to undergo. 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 - Family Status: , moved to care for [id number]. - Substance Use: Denies significant alco hol consumption, occasional social drinking. - Exercise: Limited physical activity, r eports fatigue with exertion. [facility] Medical History (Updated 10/29/24 @ 15:23 by Sweta Lim PA-C) Colon cancer screening History of foot ulcer History of osteomyelitis Anemia Hyperlipidemia LDL goal <100 Heart murmur Type 2 diabetes mellitus with hemoglobin A1c goal of less than 7.0% HTN (hypertension) HLD (hyperlipidemia) Non-insulin dependent type 2 diabetes mellitus Wound of foot Osteomyelitis Social History Household Members: Family Housing: House Do you presently have visiting nurse or other home services: No Alcohol intake: never Patient Tobacco Use Status: Never used Tobacco service: No Questionnaire PHQ-9 Over the last 2 weeks, how often have you been bothered by any of the following problems? 1. Little interest or pleasure in doing things: more than half the days 2. Feeling down, depressed, or hopeless: not at all 3. Trouble falling or staying asleep, or sleeping too much: not at all 4. Feeling tired or having little energy: nearly every day 5. Poor appetite or overeating: nearly every day 6. Feeling bad about yourself - or that you are a failure or have let yourself or your family down: not at all 7. Trouble concentrating on things, such as reading the newspaper or watching television: not at all 8. Moving or speaking so slowly that other people could have noticed. Or the opposite - being so fidgety or restless that you have been moving around a lot more than usual: not at all 9. Thoughts that you would be better off or of hurting yourself in some way: not at all Total score: 8 Depression Screening Interpretation: Positive Depression Screening Follow-up: Existing condition Depression Screening Done: Yes 39015 - PHQ-9 Billing: Yes Source: Developed by Drs. Raghav Dean, Erica Dickens, Colby Guzman and colleagues, with an educational cherry from [employer]. Thrive Questionnaire Date Thrive assessed: 10/30/23 I am a: Patient What is your living situation today?: I have a steady place to live Within the past 12 months, did the food you bought not last and you didn't have the money to get more?: Never true Within the past 12 months, did you worry whether your food would run out before you got money to buy more?: Never true Do you have trouble paying for medicines?: No Do you have trouble getting transportation to medical appointments?: No Do you have trouble paying your heating and electricity bill?: No Do you have trouble taking care of your child, family member or friend?: No Do you have trouble with day-to-day activities such as bathing, preparing meals, shopping, managing finances, etc.?: No Are you currently unemployed and looking for a job?: No Are you interested in more education?: Yes THRIVE Score: 0 AUDIT C Alcohol Use Questionnaire (AUDIT-C) 1. How often do you have a drink containing alcohol?: Monthly or less 2. How many drinks containing alcohol do you have on a typical day when you are drinking?: 3 or 4 3. How often do you have six or more drinks on one occasion?: Less than monthly Total Score: 3 Score Reviewed/Action Taken: Yes KAM-7 AMB Questionnaire KAM-7 Date KAM - 7 assessed: 10/29/24 Feeling nervous, anxious, or on edge: 0 = Not at all Not being able to stop or control worryin = Not at all Worrying too much about different things: 0 = Not at all Trouble relaxin = Not at all Being so restless that it is hard to sit still: 0 = Not at all Becoming easily annoyed or irritable: 0 = Not at all Feeling afraid as if something awful might happen: 0 = Not at all Total KAM-7 score (0-4 normal; 5-9 mild; 10-14 moderate; 15-21 severe): 0 Source: Developed by Drs. Raghav Dean, Erica Dickens, Colby Guzman and colleagues, with an educational cherry from [employer]. KAM-7 Assessment Billing KAM-7 Assessment Tool: KAM-7 Assessment 24284 Review of Systems Const Details: - Cardiovascular: Reports fatigue with exertion. Denies chest pain or orthopnea. - Respiratory: Denies dyspnea or wheezing. - Gastrointestinal: Denies black or bloody stools, unintentional weight loss. All systems reviewed & are unremarkable except as noted in HPI and below Physical exam (Primary Care) Vital Signs: Last Vital Signs Temp 97.1 F 10/29/24 13:29 Pulse 64 10/29/24 13:29 BP 154/60 H 10/29/24 13:29 Pulse Ox 97 10/29/24 13:29 Care Plan Goal for BP management: <140/90 patient to restart losartan 50 mg and return in 1 month with blood pressure diary BMI result Body Mass Index 41.3 BMI Assessment/Plan discussion: High BMI High, discussed plan: lifestyle, weight reduction, dietary, physical activity, alcohol moderation and other Tobacco/Smoking Status: Tobacco use Status Patient Tobacco Use Status Never used Tobacco 10/29/24 13:18 PHQ-9: PHQ-9 Score PHQ-9: Total score 8 10/29/24 14:36 Depression Screening Interpretation: Positive Depression Screening Follow-up: Existing condition Thrive Assessment: Date of Thrive Assessment Date Thrive assessed 10/30/23 10/29/24 13:32 Const Other: Appearance: Alert. Oriented X3. No acute distress. Head: Normal external exam. Normocephalic. Atraumatic. Eyes: Pupils are equal, round, and reactive to light. Extraocular movements intact. Conjunctiva and sclera normal. Eyelids normal. Ears: External auditory canal normal. Tympanic membranes normal. Throat: Pharynx normal. Uvula midline. Moist mucous membranes. Neck: Normal inspection. Neck supple. Full range of motion. Cardiovascular: Normal heart rate and rhythm. Heart sound normal. Murmur noted. Pulses normal throughout. Respiratory: No respiratory distress. Painless inspiration. Breath sounds normal. No wheezes/rales/rhonchi noted. Chest nontender. No accessory muscle usage noted or decreased air movement noted. Abdomen: Soft and nontender. Bowel sounds normal in all 4 quadrants. No distention noted. No organomegaly noted. No visible injury noted. Back: No costovertebral angle tenderness. Full range of motion noted. Skin: Skin warm and dry. Normal skin color. Normal skin turgor. No rashes/lesions/lacerations noted. Extremities: Lower extremity edema noted. Extremities exhibit normal range of motion. Extremities nontender. Neuro: Oriented X 3. No motor deficit. No sensory deficit. Reflexes normal. Results AMB Hemoglobin A1c AMB Hemoglobin A1c 7.0 % Last Edit by ELIO Cooper on 10/29/24 14:36 Results Reviewed Results Reviewed: Laboratory Last Values Hgb A1c (Clinic) 7.0 % (4.0-6.0) H 10/29/24 13:44 - Labs: Slightly low white blood cell count, mild anemia, total cholesterol 166 mg/dL, LDL 93 mg/dL, HDL 37 mg/dL, triglycerides 180 mg/dL. - Tests: MRI previously conducted for suspected osteomyelitis, results negative. Coding Level of Care Code New Pt Level 4 (58324) Complex EM visit Add On G2211 Diagnoses Type 2 diabetes mellitus with hemoglobin A1c goal of less than 7.0% E11.9 HTN (hypertension) I10 Hyperlipidemia LDL goal <100 E78.5 Anemia D64.9 Heart murmur R01.1 History of osteomyelitis Z87.39 History of foot ulcer Z87.2 Colon cancer screening Z12.11 Additional Codes PHQ-9 - 06564 - PHQ-9 Billing: Yes ([id number]) KAM-7 Assessment Billing - KAM-7 Assessment Tool: KAM-7 Assessment 62641 ([id number]) Assessment & Plan Assessment & Plan (1) Type 2 diabetes mellitus with hemoglobin A1c goal of less than 7.0%: Code(s): E11.9 - Type 2 diabetes mellitus without complications Category: Medical Plan: The patient's diabetes mellitus is currently managed with Jardiance, metformin, and pioglitazone. An A1c test is due to monitor glycemic control, and the patient is encouraged to maintain adherence to his medication regimen. (2) HTN (hypertension): Code(s): I10 - Essential (primary) hypertension Category: Medical Plan: The patient's hypertension is managed with losartan and metoprolol. Due to persistently high blood pressure readings, losartan dosage will be increased to 100 mg daily, with a follow-up in one month to reassess blood pressure control. (3) Hyperlipidemia LDL goal <100: Code(s): E78.5 - Hyperlipidemia, unspecified Category: Medical Plan: The patient's hyperlipidemia is managed with atorvastatin. Recent lipid panel results indicate the need for lifestyle modifications to improve HDL levels, with dietary advice provided to the patient. (4) Anemia: Code(s): D64.9 - Anemia, unspecified Category: Medical Plan: The patient has mild anemia, with a slightly low white blood cell count noted in recent labs. Further evaluation will be conducted to monitor these parameters, and the patient is advised to report any new symptoms. (5) Heart murmur: Code(s): R01.1 - Cardiac murmur, unspecified Category: Medical Plan: A heart murmur was detected during the examination, likely due to valve stiffening from hypertension. An ultrasound of the heart has been ordered to further assess the condition, with potential referral to cardiology based on results. (6) History of osteomyelitis: Code(s): Z87.39 - Personal history of other diseases of the musculoskeletal system and connective tissue Category: Medical Plan: The patient has a history of suspected osteomyelitis, previously evaluated with MRI, which was negative. No current symptoms suggestive of recurrence, but the patient is advised to seek medical attention if new symptoms arise. (7) History of foot ulcer: Code(s): Z87.2 - Personal history of diseases of the skin and subcutaneous tissue Category: Medical Plan: The patient has a history of foot ulcers, managed with wound care. The patient is advised to continue monitoring for any new ulcers and to seek prompt medical attention if they occur. (8) Colon cancer screening: Code(s): Z12.11 - Encounter for screening for malignant neoplasm of colon Category: Medical Plan: The patient has agreed to undergo a colon cancer screening with a stool test (Cologuard). Instructions regarding the procedure have been provided, and the patient is advised to follow up with results. Plan Plan Patient was informed and verbally consented to the use of an ambient scribe for clinic note documentation during this visit. 1. Diabetes Mellitus The patient's diabetes mellitus is currently managed with Jardiance, metformin, and pioglitazone. An A1c test is due to monitor glycemic control, and the patient is encouraged to maintain adherence to his medication regimen. 2. Hypertension The patient's hypertension is managed with losartan and metoprolol. Due to persistently high blood pressure readings, losartan dosage will be increased to 100 mg daily, with a follow-up in one month to reassess blood pressure control. 3. Hyperlipidemia The patient's hyperlipidemia is managed with atorvastatin. Recent lipid panel results indicate the need for lifestyle modifications to improve HDL levels, with dietary advice provided to the patient. 4. Anemia The patient has mild anemia, with a slightly low white blood cell count noted in recent labs. Further evaluation will be conducted to monitor these parameters, and the patient is advised to report any new symptoms. 5. Heart Murmur A heart murmur was detected during the examination, likely due to valve stiffening from hypertension. An ultrasound of the heart has been ordered to further assess the condition, with potential referral to cardiology based on results. 6. History Of Osteomyelitis The patient has a history of suspected osteomyelitis, previously evaluated with MRI, which was negative. No current symptoms suggestive of recurrence, but the patient is advised to seek medical attention if new symptoms arise. 7. Foot Ulcers The patient has a history of foot ulcers, managed with wound care. The patient is advised to continue monitoring for any new ulcers and to seek prompt medical attention if they occur. 8. Preventative Care: Colon Cancer Screening With Stool Test (Cologuard) The patient has agreed to undergo a colon cancer screening with a stool test (Cologuard). Instructions regarding the procedure have been provided, and the patient is advised to follow up with results. During the visit, we discussed the management of the patient's diabetes mellitus, hypertension, and hyperlipidemia. I recommended increasing the losartan dosage to better control blood pressure and advised on lifestyle modifications to improve lipid levels. We also addressed the newly detected heart murmur, planning for an ultrasound to further evaluate the condition. Preventative care measures, including a colon cancer screening with Cologuard, were discussed, and the patient agreed to proceed with the test. Orders: Orders Vitamin B12 and Folate Today Z00.00 - Encounter for general adult medical examination without abnormal findings Vitamin D 25-OH Total Today Z00.00 - Encounter for general adult medical examination without abnormal findings B Type Natriuretic Peptide Today R60.0 - Localized edema TSH reflex Free T4 Today Z00.00 - Encounter for general adult medical examination without abnormal findings AMB Hemoglobin A1c Today Z13.9 - Encounter for screening, unspecified CA echo transthoracic complete Today R01.1 - Cardiac murmur, unspecified XR chest 2V Today R01.1 - Cardiac murmur, unspecified Referrals Cologuard Test Z12.11 - Encounter for screening for malignant neoplasm of colon, Z12.12 - Encounter for screening for malignant neoplasm of rectum Medications: New semaglutide (Ozempic) for 4 weeks 0.25 mg (0.368 mL) subcut QWEEK 1.84 mL 0RF 1 month E11.9 - Type 2 diabetes mellitus without complications atorvastatin (Lipitor) 20 mg PO BEDTIME 90 tabs 3RF 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 sensor (FreeStyle Andi 3 Plus Sensor device) Check glucose 3 times a day with meals 1 ea 1RF E11.9 - Type 2 diabetes mellitus without complications 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,program assistant,cont (FreeStyle Andi 3 [place]) Check glucose 3 times a day with meals 1 ea 1RF E11.9 - Type 2 diabetes mellitus without complications pioglitazone 30 mg PO DAILY 90 tabs 3RF Changed From losartan 50 mg PO DAILY To losartan 100 mg PO DAILY 90 days 90 tabs 3RF From losartan 100 mg PO DAILY 90 days 90 tabs 3RF To losartan 50 mg PO DAILY 90 days 90 tabs 3RF Refilled losartan 50 mg PO DAILY 90 tabs 3RF 90 days Patient Instructions: - Continue taking diabetes medications as prescribed and monitor blood sugar levels regularly. - Increase losartan dosage to 100 mg daily and keep a blood pressure diary for the next visit. - Follow dietary recommendations to improve HDL levels. - Undergo the scheduled ultrasound of the heart and follow up with results. - Complete the Cologuard test as instructed and report results.
[2024-10-29 13:29] VITALS: BP 154/60; PULSE 64; TEMP 36.2; O2SAT 97; BMI 41.3
--- OUTSIDE RECORDS SUMMARY | 2024-10-29 15:21 | XMS_ITS | Clinical Summary ---
Author Organization [address] [place] [address] Address [address] [place] [address] Phone Care Team Providers Care Employee Relation Manager Name Role Phone Leo Lieberman MD Primary Care Provider [phone] Allergies No known active allergies Medications atorvastatin (LIPITOR) 10 mg tablet Take 10 mg by mouth daily. Active metFORMIN (GLUCOPHAGE) 1,000 mg tablet Take 1,000 mg by mouth 2 times daily (with meals). Active metoprolol succinate (TOPROL-XL) 50 mg 24 hr tablet Take 50 mg by mouth daily. Active Active Problems Problem Noted Date Diagnosed Date Hyperlipidemia 03/13/2019 Hypertension 03/13/2019 Type 2 diabetes mellitus wit h polyneuropathy ([facility] V24, [facility] V28) 03/13/2019 Overview (02/05/2024): Uncontrolled type 2 diabetes mellitus with polyneuropathy Encounters Date Type Department Care Team Description 10/08/2024 8:15 AM EDT Office Visit Orthopedic Surgery [facility] [address] [id number] Sandro Cheema DPAngela Follow-up exam (Primary Dx); Diabetic mononeuropathy simplex (CMS/HCC V24, CMS/[facility] V28); Acquired hallux valgus of left foot; Metatarsalgia of both feet; Dermatophytosis of nail; Pain in toe of left foot; Pain in toe of right foot; Type II diabetes mellitus with peripheral circulatory disorder (CMS/HCC V24, CMS/[facility] V28); Corns and callosities; Hammer toe of left foot; Acquired hammer toe of right foot; Acquired hallux valgus of right foot; Lesion of plantar nerve, left lower limb from Last 3 Months Social History Tobacco Use Types Packs/Day Years Used Date Smoking Tobacco: Never Smokeless Tobacco: Never Alcohol Use Standard Drinks/Week Comments No 0 (1 standard drink = 0.6 oz pur e alcohol) Sex and Gender Information Value Date Recorded Sex Assigned at Not on file Legal Sex Male 11:56 PM EST Gender Identity Not on file Sexual Orientation Not on file Obstetrics History Last Filed Vital Signs Vital Sign Reading Time Taken Comments Blood Pressure - - Pulse - - Temperature - - Respiratory Rate - - Oxygen Saturation - - Inhaled Oxygen Concentration - - Weight 127 kg (280 lb) 07/02/2024 8:06 AM EDT Height 182.9 cm (6' 0.01 ) 07/02/2024 8:06 AM ED T Body Mass Index 37.97 07/02/2024 8:06 AM EDT Plan of Treatment Upcoming Encounters Date Type Department Care Team ([facility] st Contact Info) Description 04/15/2025 8:45 AM EST Office Visit Orthopedic Surgery - [place] [phone] [phone] Sandro Cheema, DPM [address] [id number] Health Maintenance Due Date Last Done Comments Diabetes: Annual GFR (Glomer ular Filtration Rate) 1960 Diabetes: Annual Foot Exam 02/24/1970 Diabetes: Annual Retina Eye Exam 02/24/1970 DTaP,Tdap,and Td Vaccines (1 - Tdap) 02/24/1979 Pneumococcal Vaccine: 50+ Ye ars (1 of 2 - PCV) 02/24/1979 Zoster Vaccines (1 of 2) 02/24/2010 RSV Immunization Adult Patie nts (1 - Risk 60-74 years 1-dose series) 2020 Cholesterol Screening (Lipid Panel) 02/04/2024 Colorectal Cancer Screening: Colonoscopy 02/04/2024 Diabetes: Annual Urine Albumin-Creatinine Ratio (uACR) 02/04/2024 Diabetes: Blood Sugar Contro l Test (HGBA1C) 02/04/2024 HIV Screening 02/04/2024 Hepatitis C Screening 02/04/2024 Hypertension/CHF/CAD Annual BMP Blood Test 02/04/2024 Social Influencers of Health Screening 02/04/2024 Depression Screening 02/27/2024 COVID-19 Vaccine (2023-2 5 season) 2024 Influenza Vaccine (#1) 2024 HIB Vaccines Aged Out No longer eligi ble based on patient's age to complete this topic HPV Vaccines Aged Out No longer eligi ble based on patient's age to complete this topic Hepatitis A Vaccines Aged Out No long er eligible based on patient's age to complete this topic Hepatitis B Vaccines Aged Out No long er eligible based on patient's age to complete this topic IPV Vaccines Aged Out No longer eligi ble based on patient's age to complete this topic MMR Vaccines Aged Out No longer eligi ble based on patient's age to complete this topic Meningococcal ACWY Vaccine Aged Out N o longer eligible based on patient's age to complete this topic Meningococcal B Vaccine Aged Out No l onger eligible based on patient's age to complete this topic RSV Immunization Patients Un paulo 20 months Aged Out No longer eligible b ased on patient's age to complete this topic Varicella Vaccines Aged Out No longer eligible based on patient's age to complete this topic Procedures Procedure Name Priority Date/Time Associated Diagnosis Comments XR FOOT 3+ VIEWS BILAT Routine 10/08/2024 9:05 AM EDT Follow-up exam from Last 3 Months Results * XR Foot 3+ Views bilat (10/08/2024 9:05 AM EDT) Anatomical Region Laterality Modality Lower Extremities, Foot Bilateral Computed Radiography Narrative 10/08/2024 12:49 PM EDT Right foot 3 views No fracture. No radiopaque foreign joint spaces normal Hammertoe contracture lesser digits 2 through 5 with osteoarthritic changes metatarsophalangeal joint Foot position rectus Normal talus navicular position normal calcaneal inclination normal symes line talus navicular joint to calcaneal cuboid joint Left foot 3 views No fracture. 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
== END 2024-10-29 14:05 | disposition home or self-care (01) ==
LOC: HO.HMCSH 13:00
PROVIDERS: PCP Physician Assistant Medical; Visit Provider Physician Assistant Medical
DX: E11.9 Type 2 diabetes mellitus without complications (principal); I10 Essential (primary) hypertension; E78.5 Hyperlipidemia, unspecified; D64.9 Anemia, unspecified; R01.1 Cardiac murmur, unspecified; Z87.39 Personal history of other diseases of the musculoskeletal system and connective tissue; Z87.2 Personal history of diseases of the skin and subcutaneous tissue; Z12.11 Encounter for screening for malignant neoplasm of colon; Z13.9 Encounter for screening, unspecified

== ENCOUNTER → 2024-10-29 13:00 | Outpatient (BNVA) | payer OTHER, SELFPAY | PROVIDERS: PCP Physician Assistant Medical; Visit Provider Physician Assistant Medical | DX: E11.9 Type 2 diabetes mellitus without complications (principal); I10 Essential (primary) hypertension; E78.5 Hyperlipidemia, unspecified; D64.9 Anemia, unspecified; M86.9 Osteomyelitis, unspecified; R01.1 Cardiac murmur, unspecified; Z86.31 Personal history of diabetic foot ulcer; Z79.84 Long term (current) use of oral hypoglycemic drugs; Z79.899 Other long term (current) drug therapy; Z87.39 Personal history of other diseases of the musculoskeletal system and connective tissue | CPT/HCPCS: 83036; 96127; 99202 ==

== ENCOUNTER 2024-12-10 10:54 | Outpatient (AMB) | payer OTHER, SELFPAY ==
--- OUTSIDE RECORDS SUMMARY | 2024-10-29 09:40 | XMS_ITS ---
Author Organization [facility] Address [address] [facility] [address] [place] [phone] Care Team Providers Care Weekend Caregiver Name Role Phone Mio (RETIRED) Leo HOLT Primary Care Provider Unavailable Raghav Llanos [phone] REASON FOR VISIT scrPatient presents today for a screening colonoscopy Encounters Encounter Location Date Provider Diagnosis [facility] [address] [facility] [address] [place] [phone] 10/29/2024 Raghav Llanos Plan Of Treatment Next Appt Details Provider Name:Javed Grover Jacobo nikia , 03/04/2025 09:40:00 AM, [address] [facility], [address], [place], [address], Progress Notes * RICKIEPRATIK MENESESDOB:1960 (64 yo M)Acc No.[id number]:10/29/2024 Progress Notes Patient: PRATIK REAGAN Provider: Olivia Llanos MD :1960 A ge:64 Y S ex:Male Date:10/29/2024 Address:[address] [place], [place] [id number] Pcp:Leo Lieberman (RETIRED) MD Subjective: * Chief [...] MD Date: 0 10/29/2024 Generated for Devin vuong/Faeleuteriog/eTransmitting on: 1 01:18 PM EDT
[2024-12-10 11:05] VITALS: BP 142/75; PULSE 66; RESP 20; TEMP 35.8; O2SAT 96; BMI 40.5
--- NOTE | 2024-12-10 11:05 | MHC.PC.OV ---
Vital Signs 12/10/24 11:05 Height 6 ft 1 in Weight 307 lb BMI 40.5 BP 142/75 H Blood Pressure Location Rt brachial Position Sitting Respiration 20 Pulse 66 Pulse Source Pulse Oximeter Temp 96.4 F L Temp Source Temporal Artery Scan Pulse Oximetry (%) 96 Oxygen Delivery Method Room Air Intake Visit Reasons: 1 month follow up Intake Note: F/u medications Accompanied by: Self / Same As Patient Allergies No Known Allergies Allergy (Verified 12/10/24 13:20) Medication List - Last Reconciled 12/10/24 by Sweta Lim PA-C atorvastatin (Lipitor) 20 mg PO BEDTIME blood pressure test kit-large check BP daily 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 sensor ([employer] Andi 3 Plus Sensor device) Check glucose 3 times a day with meals 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,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,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 (FreeStyle Andi 3 [place]) Check glucose 3 times a day with meals empagliflozin (Jardiance) 25 mg PO DAILY losartan 50 mg PO DAILY 90 days metformin 1,000 mg PO BID 90 days metoprolol succinate ER 50 mg PO DAILY multivit with min-folic acid 200 mcg (Multivitamin Gummies) 1 tab PO DAILY pioglitazone 30 mg PO DAILY semaglutide 0.5 mg (0.736 mL) subcut QWEEK 1 month Tobacco use date assessed: 12/10/24 Fall risk assessment: No Falls in past year Last assessed Fall Risk: 12/10/24 Dental Screening Dental Screen Date: 12/10/24 Did you have a dental visit in the last 12 months?: No Did you have a dental problem in the last 6 months where you did not have access to dental care?: No Was dental information given to patient?: No HPI 1 month follow up HPI Details The patient is a 64-year-old male presenting with a one-month follow-up visit. The patient has been on losartan 50 mg for hypertension and reports feeling great with no unusual side effects. His blood pressure at home has improved, although he was initially unaware of his baseline readings. In the clinic, his blood pressure was recorded at 142/75 mmHg, which is an improvement from previous readings of 170/89 and 150/60. The patient has a history of Type 2 Diabetes Mellitus, with a previous A1c of 7.5%. He was started on Ozempic approximately one and a half months ago, which has contributed to an 8-pound weight loss. The patient administers the medication with assistance and is currently on a 0.5 mg dose. Social History - Family status: Accompanied by a supportive partner who assists with medication administration. [facility] Medical History Colon cancer screening History of foot ulcer History of osteomyelitis Anemia Hyperlipidemia LDL goal <100 Heart murmur Type 2 diabetes mellitus with hemoglobin A1c goal of less than 7.0% HTN (hypertension) HLD (hyperlipidemia) Non-insulin dependent type 2 diabetes mellitus Wound of foot Osteomyelitis Social History Household Members: Family Housing: House Do you presently have visiting nurse or other home services: No Alcohol intake: never Patient Tobacco Use Status: Never used Tobacco service: No Current occupational status: employed Cognitive needs: No Hearing needs: No Vision needs: Yes (rx glasses) Questionnaire PHQ-9 Over the last 2 weeks, how often have you been bothered by any of the following problems? 1. Little interest or pleasure in doing things: more than half the days 2. Feeling down, depressed, or hopeless: not at all 3. Trouble falling or staying asleep, or sleeping too much: not at all 4. Feeling tired or having little energy: nearly every day 5. Poor appetite or overeating: nearly every day 6. Feeling bad about yourself - or that you are a failure or have let yourself or your family down: not at all 7. Trouble concentrating on things, such as reading the newspaper or watching television: not at all 8. Moving or speaking so slowly that other people could have noticed. Or the opposite - being so fidgety or restless that you have been moving around a lot more than usual: not at all 9. Thoughts that you would be better off or of hurting yourself in some way: not at all Total score: 8 Depression Screening Interpretation: Positive Depression Screening Follow-up: Existing condition Depression Screening Done: Yes 29505 - PHQ-9 Billing: Yes Source: Developed by Drs. Raghav Dean, Erica Dickens, Colby Guzman and colleagues, with an educational cherry from [employer]. Thrive Questionnaire Date Thrive assessed: 12/10/24 I am a: Patient What is your living situation today?: I have a steady place to live Within the past 12 months, did the food you bought not last and you didn't have the money to get more?: Never true Within the past 12 months, did you worry whether your food would run out before you got money to buy more?: Never true Do you have trouble paying for medicines?: No Do you have trouble getting transportation to medical appointments?: No Do you have trouble paying your heating and electricity bill?: No Do you have trouble taking care of your child, family member or friend?: No Do you have trouble with day-to-day activities such as bathing, preparing meals, shopping, managing finances, etc.?: No Are you currently unemployed and looking for a job?: No Are you interested in more education?: Yes THRIVE Score: 0 AUDIT C Alcohol Use Questionnaire (AUDIT-C) 1. How often do you have a drink containing alcohol?: Monthly or less 2. How many drinks containing alcohol do you have on a typical day when you are drinking?: 3 or 4 3. How often do you have six or more drinks on one occasion?: Less than monthly Total Score: 3 Score Reviewed/Action Taken: Yes KAM-7 AMB Questionnaire KAM-7 Date KAM - 7 assessed: 12/10/24 Feeling nervous, anxious, or on edge: 0 = Not at all Not being able to stop or control worryin = Not at all Worrying too much about different things: 0 = Not at all Trouble relaxin = Not at all Being so restless that it is hard to sit still: 0 = Not at all Becoming easily annoyed or irritable: 0 = Not at all Feeling afraid as if something awful might happen: 0 = Not at all Total KAM-7 score (0-4 normal; 5-9 mild; 10-14 moderate; 15-21 severe): 0 Source: Developed by Drs. Raghav Dean, Erica Dickens, Colby Guzman and colleagues, with an educational cherry from [employer]. KAM-7 Assessment Billing KAM-7 Assessment Tool: KAM-7 Assessment 46590 Review of Systems Const Details: - Cardiovascular: Reports feeling great with no unusual side effects from losartan. - Endocrine: Reports weight loss of 8 pounds since starting Ozempic. All systems reviewed & are unremarkable except as noted in HPI and below Physical exam (Primary Care) Vital Signs: Last Vital Signs Temp 96.4 F L 12/10/24 11:05 Pulse 66 12/10/24 11:05 Resp 20 12/10/24 11:05 BP 142/75 H 12/10/24 11:05 Pulse Ox 96 12/10/24 11:05 Oxygen Delivery Method Room Air 12/10/24 11:05 Care Plan Goal for BP management: <140/90 patient to return in 1 week for blood pressure check follow-up BMI result Body Mass Index 40.5 BMI Assessment/Plan discussion: High BMI High, discussed plan: lifestyle, weight reduction, dietary, physical activity, alcohol moderation and other Tobacco/Smoking Status: Tobacco use Status Tobacco use date assessed 12/10/24 12/10/24 11:07 Patient Tobacco Use Status Never used Tobacco 12/10/24 11:07 PHQ-9: PHQ-9 Score PHQ-9: Total score 8 12/10/24 11:32 Depression Screening Interpretation: Positive Depression Screening Follow-up: Existing condition Thrive Assessment: Date of Thrive Assessment Date Thrive assessed 12/10/24 12/10/24 11:07 Const Other: Appearance: Alert. Oriented X3. No acute distress. Head: Normal external exam. Normocephalic. Atraumatic. Eyes: Pupils are equal, round, and reactive to light. Extraocular movements intact. Conjunctiva and sclera normal. Eyelids normal. Throat: Pharynx normal. Uvula midline. Moist mucous membranes. Neck: Normal inspection. Neck supple. Full range of motion. Cardiovascular: Blood pressure recorded at 142/75. Normal heart rate and rhythm. Respiratory: No respiratory distress. Painless inspiration. Back: Full range of motion noted. Skin: Skin warm and dry. Normal skin color. Extremities: Extremities exhibit normal range of motion. Neuro: Oriented X 3. No motor deficit. No sensory deficit. Reflexes normal. Office Procedures Flu Questionnaire Does the patient have a severe egg allergy?: No Does the patient have severe life threatening allergies?: No Does the patient have a fever or illness today?: No Has the patient ever had Guillain-[place] Syndrome?: No Has the patient ever had any past reaction to a flu shot?: No Immunizations Fluarix [id number] (PF) 45 mcg (15 mcg x 3)/0.5 mL IM syringe Performing Provider: Sweta Lim PA-C [facility] Administered by: Elise Velazquez CMA on 12/10/24 11:24 Dose Route Admin Location Dispensed Lot Number Expiration Date NDC Glass Sagger 0.5 mL IM Left Deltoid 0.5 mL [id number] 08/25/25 [id number] [employer] VIS Given Date VIS Provided VIS Publication Date 12/10/24 Single Vaccine 24 Eligibility Eligibility Date Funding Source Not VFC Eligible 12/10/24 Private Boostrix Tdap 2.5 Lf unit-8 mcg-5 Lf/0.5 mL intramuscular syringe Performing Provider: Sweta Lim PA-C Performing Location: [facility] [place] Administered by: Elise Velazquez CMA on 12/10/24 11:33 Dose Route Admin Location Dispensed Lot Number Expiration Date ND Glass Sagger 0.5 mL IM Right Deltoid 0.5 mL [id number] 01/15/27 49633-108-87 [employer] Total Dispensed Waste 0.5 mL 0 % VIS Given Date VIS Provided VIS Publication Date 12/10/24 Single Vaccine 20 Eligibility Eligibility Date Funding Source Not VFC Eligible 12/10/24 Private Results Reviewed Results Reviewed: - Labs: Previous A1c was 7.5%. Coding Level of Care Code Est Pt Level 4 (98401) Complex EM visit Add On G2211 Diagnoses HTN (hypertension) I10 Type 2 diabetes mellitus with hemoglobin A1c goal of less than 7.0% E11.9 Additional Codes KAM-7 Assessment Billing - KAM-7 Assessment Tool: KAM-7 Assessment 22392 ([id number]) PHQ-9 - 03996 - PHQ-9 Billing: Yes ([id number]) Assessment & Plan Assessment & Plan (1) HTN (hypertension): Code(s): I10 - Essential (primary) hypertension Category: Medical Plan: The patient is currently on losartan 50 mg and metoprolol extended release 50 mg for hypertension management. Blood pressure readings have improved, but further monitoring at home is recommended to ensure accurate assessment. A blood pressure cuff will be prescribed for home use, and the patient is advised to record readings over the next week. (2) Type 2 diabetes mellitus with hemoglobin A1c goal of less than 7.0%: Code(s): E11.9 - Type 2 diabetes mellitus without complications Category: Medical Plan: The patient is on Ozempic, which has resulted in an 8-pound weight loss and is expected to help reduce A1c levels. The current dose is 0.5 mg, and the patient will be monitored for further adjustments. Follow-up in two months is planned to reassess A1c levels and adjust treatment as necessary. Plan Plan Patient was informed and verbally consented to the use of an ambient scribe for clinic note documentation during this visit. 1. Essential Hypertension The patient is currently on losartan 50 mg and metoprolol extended release 50 mg for hypertension management. Blood pressure readings have improved, but further monitoring at home is recommended to ensure accurate assessment. A blood pressure cuff will be prescribed for home use, and the patient is advised to record readings over the next week. 2. Type 2 Diabetes Mellitus The patient is on Ozempic, which has resulted in an 8-pound weight loss and is expected to help reduce A1c levels. The current dose is 0.5 mg, and the patient will be monitored for further adjustments. Follow-up in two months is planned to reassess A1c levels and adjust treatment as necessary. During the visit, we discussed the management of hypertension and diabetes. The patient is advised to monitor blood pressure at home and report any significant changes. We also reviewed the use of Ozempic for diabetes management and the importance of regular follow-up to adjust treatment as needed. Orders: Orders Influenza [id number] Immunization Today Z23 - Encounter for immunization TDaP Immunization Today Z23 - Encounter for immunization Medications: New blood pressure test kit-large check BP daily 1 ea 0RF I10 - Essential (primary) hypertension Changed From semaglutide (Ozempic) for 4 weeks 0.5 mg (0.736 mL) subcut QWEEK 3.68 mL 0RF 1 month E11.9 - Type 2 diabetes mellitus without complications To semaglutide for 4 weeks 0.5 mg (0.736 mL) subcut QWEEK 3 mL 0RF 1 month E11.9 - Type 2 diabetes mellitus without complications Patient Instructions: - Monitor blood pressure at home using the prescribed cuff and record readings daily. - Continue taking losartan and metoprolol as prescribed. - Administer Ozempic as directed and report any issues. - Follow up in one week for blood pressure review and in two months for diabetes management.
--- OUTSIDE RECORDS SUMMARY | 2024-12-10 13:19 | XMS_ITS | Patient Health Record ---
Author Organization [facility] Address [address] [place] [address] Care Team Providers Care Camera Supervisor Name Role Phone Mio (RETIRED) Leo HOLT Primary Care Provider Unavailable Raghav Llanos Unavailable [phone] Reason For Referral No Information Encounters Encounter Location Date Provider Diagnosis [facility] [address] [place] [address] 10/28/2024 Raghav Llanos Plan Of Treatment Next Appt Details Provider Name:Javed montejo , 03/04/2025 09:40:00 AM, [address], [address], [place], [address], Insurance Providers Payer Name Payer Address Payer Phone Subscriber Number Group Number Insured Name Patient Relationship to Insured Coverage Start Date Coverage End Date [facility] ([facility] L) [address] [place] [address] [phone] [id number] PRATIK DAMIAN Self - patient is the insured
--- OUTSIDE RECORDS SUMMARY | 2024-12-10 13:19 | XMS_ITS | Clinical Summary ---
Author Organization [address] [place] [address] Address [address] [place] [address] Phone Care Team Providers Care Construction Foreman Name Role Phone Leo Lieberman MD Primary Care Provider [phone] Allergies No known active allergies Medications atorvastatin [...] Type 2 diabetes mellitus wit h polyneuropathy ([facility] V24, [facility] V28) 03/13/2019 Overview (02/05/2024): Uncontrolled type 2 diabetes mellitus with polyneuropathy Encounters Date Type Department Care Team Description 11/10/[address] [facility] [address] [address] Sandro Cheema DPM 10/08/2024 8:15 AM EDT Office Visit Orthopedic [facility] [address] [address] Sandro Cheema DPM Follow-up exam (Primary Dx); Diabetic mononeuropathy simplex (CMS/HCC V24, [facility] V28); Acquired hallux valgus of left foot; Metatarsalgia of both feet; Dermatophytosis of nail; Pain in toe of left foot; Pain in toe of right foot; Type II diabetes mellitus with peripheral circulatory disorder (CMS/HCC V24, [facility] V28); Corns and callosities; Hammer toe of [...] Upcoming Encounters Date Type Department Care Team (Late st Contact Info) Description 04/15/2025 8:45 AM EST Office Visit Orthopedic Surgery - [place] [address] [address] Sandro Cheema, DPM [address] [address] Health Maintenance Due Date Last Done Comments Colorectal Cancer Screening: Colonoscopy 1960 Diabetes: Annual GFR (Glomer ular Filtration Rate) 1960 Diabetes: Annual Foot Exam 02/24/1970 Diabetes: Annual Retina Eye Exam 02/24/1970 DTaP,Tdap,and Td Vaccines (1 - Tdap) 02/24/1979 Pneumococcal Vaccine: 50+ Ye ars (1 of 2 - PCV) 02/24/1979 RSV Immunization Adult Patie nts (1 - Risk 50-74 years 1-dose series) 02/24/2010 Zoster Vaccines (1 of 2) 02/24/2010 Cholesterol Screening (Lipid Panel) 02/04/2024 Diabetes: Annual Urine Albumin-Creatinine Ratio (uACR) 02/04/2024 Diabetes: Blood Sugar Contro l Test (HGBA1C) 02/04/2024 HIV Screening 02/04/2024 Hepatitis C Screening 02/04/2024 Hypertension/CHF/CAD Annual BMP Blood Test 02/04/2024 Social Influencers of Health Screening 02/04/2024 Depression Screening 02/27/2024 COVID-19 Vaccine (1 - 2023-2 5 season) 2024 Influenza Vaccine (#1) 2024 [...] R esult from Last 3 Months Insurance [facility] [employer] Care Teams Construction Foreman Relationship Specialty Start Date End Date Leo Lieberman MD [address] [place] [address] [place] PCP - General Internal Medicine 03/11/19
== END 2024-12-10 11:41 | disposition home or self-care (01) ==
LOC: HO.HMCSH 10:54
PROVIDERS: PCP Physician Assistant Medical; Visit Provider Physician Assistant Medical
DX: I10 Essential (primary) hypertension (principal); E11.9 Type 2 diabetes mellitus without complications; Z23 Encounter for immunization

== ENCOUNTER → 2024-12-10 13:23 | Outpatient (REF) | payer OTHER, SELFPAY ==
--- NOTE | 2024-12-10 13:26 | CA_ITS ---
Transthoracic Echocardiogram Patient (Last, First, Middle): Trip Montanze S Gender: M Date of : 1960 Age: 64 Procedure Date: 12/10/2024 Procedure Type: Transthoracic Echocardiogram Location: OP Height: 185.42 cm Weight: 139.71 kg BSA: 2.59 m2 Heart Rate: bpm BP: 130 / 80 mmHg Traffic Sign Supervisor: Referring MD: Sweta Lim PA-C Barrel Reamer: Tristen Peralta MD Symptoms: R01.1 - Cardiac murmur, unspecified Study Quality: Technically Difficult due to body habitus ECG Rhythm: Sinus Conclusions: - 1. Technically limited study due to body habitus 2. Normal LV ejection fraction 55-60% with mild LVH 3. Moderate calcific aortic valve changes noted with poorly visualized cardiac valves with normal cardiac valvular Dopplers 4. Normal measured RV systolic pressure Findings Procedure Information Contrast agent, definity, is being given per protocol without apparent complications. Left Ventricle The left ventricle was not well visualized. Normal left ventricular cavity size. There is mildly increased left ventricular wall thickness. The left ventricular systolic function is normal. The visually estimated ejection fraction is between 55-60%. Regional wall motion abnormalities can not be excluded due to suboptimal endocardial definition. Diastolic function is indeterminate on the basis of available data. Right Ventricle The right ventricle was not well visualized. Atria The left atrium was not well visualized. Interatrial shunt cannot be excluded. The right atrium was not well visualized. Aortic Valve There is moderate calcification of the aortic valve. There is no aortic valve stenosis. There is no aortic valve regurgitation. Mitral Valve The mitral valve was not well visualized. There is no mitral valve regurgitation. There is no mitral valve stenosis. Pulmonic Valve The pulmonic valve was not well visualized. Tricuspid Valve The tricuspid valve was not well visualized. There is trace tricuspid valve regurgitation. The right ventricular systolic pressure is normal. The right ventricular systolic pressure is 19 mmHg. Normal right atrial pressure. There is no evidence of pulmonary hypertension. Great Vessels The aorta was not well visualized. The pulmonary artery was not well visualized. Venous The inferior vena cava was not well visualized. Pericardium/Pleural The pericardium was not well visualized. Prior Study Comparison No prior study available for comparison. Measurements 2D Linear Measurements IVSd: 1.20 0.6-0.9/0.6-1.0 cm LVIDd: 4.99 3.9-5.3/4.2-5.9 cm LVIDd Index: 1.93 2.4-3.2/2.2-3.1 cm/m2 LVIDs: 3.32 2.0-3.6 cm LVPWd: 1.25 0.7-1.1 cm Ao Root: 3.60 2.1-3.5 cm LA Diam: 3.90 2.7-3.8/3.0-4.0 cm LAIDs Index: 1.51 1.5-2.3 cm/m2 LV Mass: 299.08 67-162/88-224 g LV Mass Index: 115.48 43-95/49-115 g/m2 LVOT Diam: 2.20 3.0+(-)1.3 cm 2D Systolic Function EF 4C: 60.00 >55% EF 2C: 59.20 >55% Mitral Valve MV Pk E: 0.51 MV PK A: 0.64 MV Decel Time: 269.00 E/A: 0.80 E'Lateral: 6.64 E'Medial: 5.00 E/E' Med: 10.30 E/E' Lat: 7.70 PHT: 79.00 MVA PHT: 2.78 Decel [place]: 1.91 Aortic Valve AoV Pk Nirmal: 1.43 AoV Mn Nirmal: 0.86 AoV VTI: 0.30 AoV Pk Grad: 8.00 Aov Mn Grad: 4.00 MARIN Cont.VTI: 2.40 LVOT LVOT Pk Nirmal: 0.76 LVOT Mn Nirmal: 0.48 LVOT VTI: 0.19 LVOT Pk Grad: 2.00 LVOT Mn Grad: 1.00 LVOT Diam: 2.20 LVOT Area: 3.80 Diastolic Function MV Pk E: 0.51 MV Pk A: 0.64 E/A: 0.80 E'Medial: 5.00 E/E' Med: 10.30 E' Laterial: 6.64 E/E' Lat: 7.70 Right Ventricle TAPSE (mm): 29.00 TVS' Nirmal: 13.00 Tricuspid Valve TR Pk Nirmal: 1.98 TR Pk Grad: 16.00 RA Press: 3.00 RVSP: 19.00 Great Vessels Aorta Ao Root-2D: 3.60 2.0-3.7 cm Ao Asc: 3.60 2.1-3.4 cm Pulmonary Valve PV Pk Nirmal: 1.05 Peak PV Grad: 4.00 Updated in Other Vendor System with Status of Final Tristen Peralta MD electronically signed on 12/10/2024 2:58:30 PM with status of Final
== END ==
LOC: HO.CARD 13:23
PROVIDERS: PCP Physician Assistant Medical; Visit Provider Physician Assistant Medical
DX: Z23 Encounter for immunization (principal); I10 Essential (primary) hypertension; E11.9 Type 2 diabetes mellitus without complications; R01.1 Cardiac murmur, unspecified; Z79.84 Long term (current) use of oral hypoglycemic drugs; Z79.899 Other long term (current) drug therapy
CPT/HCPCS: 90471; 90472; 90656; 90715; 93306; 96127; 99212; Q9957

== ENCOUNTER → 2024-12-10 13:26 | Outpatient (BNV) | payer OTHER, SELFPAY | PROVIDERS: PCP Physician Assistant Medical; Visit Provider Internal Medicine Cardiovascular Disease | DX: I35.8 Other nonrheumatic aortic valve disorders (principal) | CPT/HCPCS: 93306 ==

== ENCOUNTER 2024-12-17 14:20 | Outpatient (AMB) | payer OTHER, SELFPAY ==
--- OUTSIDE RECORDS SUMMARY | 2024-10-29 09:40 | XMS_ITS ---
Author Organization [facility] Address [address] [facility] [address] [place] [phone] Care Team Providers Care Driver'S License Reviewing Officer Name Role Phone Mio (RETIRED) Leo HOLT Primary Care Provider Unavailable Raghav Llanos [phone] REASON FOR VISIT scrPatient presents today for a screening colonoscopy Encounters Encounter Location Date Provider Diagnosis [facility] [address] [facility] [address] [place] [phone] 10/29/2024 Raghav Llanos Plan Of Treatment Next Appt Details Provider Name:Javed Grover Jacobo nikia , 03/04/2025 09:40:00 AM, [address] [facility], [address], [place], [address], Progress Notes * RICKIEPRATIK MENESESDOB:1960 (64 yo M)Acc No.[id number]:10/29/2024 Progress Notes Patient: PRATIK REAGAN Provider: Olivia Llanos MD :1960 A ge:64 Y S ex:Male Date:10/29/2024 Address:[address] [place], [place] [phone] Pcp:Leo Lieberman (RETIRED) MD Subjective: * Chief [...] MD Date: 0 10/29/2024 Generated for Devin vunog/Faeleuteriog/eTransmitting on: 1 08:32 PM EDT
[2024-12-17 14:26] VITALS: BP 127/66; PULSE 71; TEMP 36.1; O2SAT 95; BMI 40.8
--- NOTE | 2024-12-17 14:26 | A.OFFPC_ITS ---
Vital Signs 12/17/24 14:26 Height 6 ft 1 in Weight 309 lb 6 oz BMI 40.8 BP 127/66 Blood Pressure Location Lt brachial Position Sitting Pulse 71 Pulse Source Pulse Oximeter Temp 97.0 F Temp Source Temporal Artery Scan Pulse Oximetry (%) 95 Oxygen Delivery Method Room Air Intake Visit Reasons: 1 Week follow up Intake Note: F/u medications Accompanied by: Self / Same As Patient Allergies No Known Allergies Allergy (Verified 12/17/24 16:22) Medication List - Last Reconciled 12/17/24 by Sweta Lim PA-C atorvastatin (Lipitor) 20 mg PO BEDTIME blood pressure test kit-large check BP daily 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 sensor (ConforMISStyle Andi 3 Plus Sensor device) Check glucose 3 times a day with meals 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,lamination inspector,cont (FreeStyle Andi 3 M[place]ord) Check glucose 3 times a day with meals empagliflozin (Jardiance) 25 mg PO DAILY furosemide (Lasix) 20 mg PO DAILY losartan 50 mg PO DAILY 90 days metformin 1,000 mg PO BID 90 days metoprolol succinate ER 50 mg PO DAILY multivit with min-folic acid 200 mcg (Multivitamin Gummies) 1 tab PO DAILY pioglitazone 30 mg PO DAILY semaglutide 0.5 mg (0.736 mL) subcut QWEEK 1 month Tobacco use date assessed: 12/17/24 Fall risk assessment: No Falls in past year Last assessed Fall Risk: 12/17/24 Dental Screening Dental Screen Date: 12/17/24 Did you have a dental visit in the last 12 months?: No Did you have a dental problem in the last 6 months where you did not have access to dental care?: No Was dental information given to patient?: No HPI 1 Week follow up HPI Details The patient is a 64-year-old male presenting with concerns regarding bl ood pressure management and potential congestive heart failure. The patient has a history of hypertension, currently managed with losartan 50 mg and metoprolol extended release 50 mg. Blood pressure readings have shown variability, with a recent manual measurement of 122/74 mmHg, although home readings have been higher. The patient also has a history of diabetes mellitus, with a previously recorded blood sugar level as high as 500 mg/dL. His HbA1c has been stable at 7%, indicating good control of his diabetes. The patient reports swelling in his feet, which has been noted for approximately two years, coinciding with a previous hospitalization for a foot ulcer. There is concern for peripheral edema, potentially related to cardiac issues. An echocardiogram revealed normal left ventricular ejection fraction but indicated mild left ventricular hypertrophy and moderate aortic valve calcification. These findings suggest possible cardiac involvement contributing to the patient's symptoms. Social History - Exercise: Reports no regular exercise routine. - Nutritional Intake: Consumes a large a mount of water daily, approximately one to two gallons. [facility] Medical History GARCIA (dyspnea on exertion) Pedal edema Left ventricular hypertrophy Calcification of aortic valve Colon cancer screening History of foot ulcer History of osteomyelitis Anemia Hyperlipidemia LDL goal <100 Heart murmur Type 2 diabetes mellitus with hemoglobin A1c goal of less than 7.0% HTN (hypertension) HLD (hyperlipidemia) Non-insulin dependent type 2 diabetes mellitus Wound of foot Osteomyelitis Family History Mother No problems noted. Father No problems noted. Social History Household Members: Family Housing: House Do you presently have visiting nurse or other home services: No Alcohol intake: never Patient Tobacco Use Status: Never used Tobacco service: No Current occupational status: employed Cognitive needs: No Hearing needs: No Vision needs: Yes (rx glasses) Questionnaire PHQ-9 Over the last 2 weeks, how often have you been bothered by any of the following problems? 1. Little interest or pleasure in doing things: more than half the days 2. Feeling down, depressed, or hopeless: not at all 3. Trouble falling or staying asleep, or sleeping too much: not at all 4. Feeling tired or having little energy: nearly every day 5. Poor appetite or overeating: nearly every day 6. Feeling bad about yourself - or that you are a failure or have let yourself or your family down: not at all 7. Trouble concentrating on things, such as reading the newspaper or watching television: not at all 8. Moving or speaking so slowly that other people could have noticed. Or the opposite - being so fidgety or restless that you have been moving around a lot more than usual: not at all 9. Thoughts that you would be better off or of hurting yourself in some way: not at all Total score: 8 Depression Screening Interpretation: Positive Depression Screening Follow-up: Existing condition Depression Screening Done: Yes 30920 - PHQ-9 Billing: Yes Source: Developed by Drs. Raghav Dean, Erica Dickens, Colby Guzman and colleagues, with an educational cherry from [employer]. Thrive Questionnaire Date Thrive assessed: 12/17/24 I am a: Patient What is your living situation today?: I have a steady place to live Within the past 12 months, did the food you bought not last and you didn't have the money to get more?: Never true Within the past 12 months, did you worry whether your food would run out before you got money to buy more?: Never true Do you have trouble paying for medicines?: No Do you have trouble getting transportation to medical appointments?: No Do you have trouble paying your heating and electricity bill?: No Do you have trouble taking care of your child, family member or friend?: No Do you have trouble with day-to-day activities such as bathing, preparing meals, shopping, managing finances, etc.?: No Are you currently unemployed and looking for a job?: No Are you interested in more education?: Yes THRIVE Score: 0 AUDIT C Alcohol Use Questionnaire (AUDIT-C) 1. How often do you have a drink containing alcohol?: Monthly or less 2. How many drinks containing alcohol do you have on a typical day when you are drinking?: 3 or 4 3. How often do you have six or more drinks on one occasion?: Less than monthly Total Score: 3 Score Reviewed/Action Taken: Yes KAM-7 AMB Questionnaire KAM-7 Date KAM - 7 assessed: 12/17/24 Feeling nervous, anxious, or on edge: 0 = Not at all Not being able to stop or control worryin = Not at all Worrying too much about different things: 0 = Not at all Trouble relaxin = Not at all Being so restless that it is hard to sit still: 0 = Not at all Becoming easily annoyed or irritable: 0 = Not at all Feeling afraid as if something awful might happen: 0 = Not at all Total KAM-7 score (0-4 normal; 5-9 mild; 10-14 moderate; 15-21 severe): 0 Source: Developed by Drs. Raghav Dean, Erica Dickens, Colby Guzman and colleagues, with an educational cherry from [employer]. KAM-7 Assessment Billing KAM-7 Assessment Tool: KAM-7 Assessment 19389 Review of Systems Const Details: - Cardiovascular: Reports swelling in feet. Denies chest pain. - Respiratory: Reports dyspnea on exertion. Physical exam (Primary Care) Vital Signs: Last Vital Signs Temp 97.0 F 12/17/24 14:26 Pulse 71 12/17/24 14:26 BP 127/66 12/17/24 14:26 Pulse Ox 95 12/17/24 14:26 Oxygen Delivery Method Room Air 12/17/24 14:26 Care Plan Goal for BP management: <140/90 patient to continue losartan 50 mg daily and metoprolol extended release 50 mg BMI result Body Mass Index 40.8 BMI Assessment/Plan discussion: High BMI High, discussed plan: lifestyle, weight reduction, dietary, physical activity, alcohol moderation and other Tobacco/Smoking Status: Tobacco use Status Tobacco use date assessed 12/17/24 12/17/24 14:29 Patient Tobacco Use Status Never used Tobacco 12/17/24 14:29 PHQ-9: PHQ-9 Score PHQ-9: Total score 8 12/17/24 14:29 Depression Screening Interpretation: Positive Depression Screening Follow-up: Existing condition Thrive Assessment: Date of Thrive Assessment Date Thrive assessed 12/17/24 12/17/24 14:29 Const Other: Appearance: Alert. Oriented X3. No acute distress. Head: Normal external exam. Normocephalic. Atraumatic. Eyes: Pupils are equal, round, and reactive to light. Extraocular movements intact. Conjunctiva and sclera normal. Eyelids normal. Throat: Pharynx normal. Uvula midline. Moist mucous membranes. Neck: Normal inspection. Neck supple. Full range of motion. Cardiovascular: Normal heart rate and rhythm. Heart sound normal. No murmurs noted. Pulses normal throughout. Respiratory: No respiratory distress. Painless inspiration. Breath sounds normal. No wheezes/rales/rhonchi noted. Chest nontender. No accessory muscle usage noted or decreased air movement noted. Back: Full range of motion noted. Skin: Skin warm and dry. Normal skin color. Normal skin turgor. No rashes/lesions/lacerations noted. Extremities: Lower extremity edema noted. Extremities exhibit normal range of motion. Neuro: Oriented X 3. No motor deficit. No sensory deficit. Reflexes normal. Office Procedures Flu Questionnaire Does the patient have a severe egg allergy?: No Does the patient have severe life threatening allergies?: No Does the patient have a fever or illness today?: No Has the patient ever had Guillain-Holder Syndrome?: No Has the patient ever had any past reaction to a flu shot?: No Immunizations Fluarix [id number] (PF) 45 mcg (15 mcg x 3)/0.5 mL IM syringe Performing Provider: Sweta Lim PA-C [facility] [place] [facility] Documented (not given) by: Elise Velazquez CMA on 12/17/24 14:36 Reason Not Given: Received Previously Results Reviewed Results Reviewed: - Echocardiogram: Normal left ventricular ejection fraction, mild left ventricular hypertrophy, moderate aortic valve calcification. Coding Level of Care Code Est Pt Level 4 (19251) Complex EM visit Add On G2211 Diagnoses HTN (hypertension) I10 Type 2 diabetes mellitus with hemoglobin A1c goal of less than 7.0% E11.9 Pedal edema R60.0 GARCIA (dyspnea on exertion) R06.09 Left ventricular hypertrophy I51.7 Calcification of aortic valve I35.9 Additional Codes KAM-7 Assessment Billing - KAM-7 Assessment Tool: KAM-7 Assessment 71169 ([id number]) PHQ-9 - 43701 - PHQ-9 Billing: Yes ([id number]) Time Spent (min) 60 Assessment & Plan Assessment & Plan (1) HTN (hypertension): Code(s): I10 - Essential (primary) hypertension Category: Medical Plan: The patient's hypertension is managed with losartan 50 mg and metoprolol extended release 50 mg, with recent manual blood pressure readings within acceptable range. No changes to the current regimen are planned unless significant changes in blood pressure are observed. (2) Type 2 diabetes mellitus with hemoglobin A1c goal of less than 7.0%: Code(s): E11.9 - Type 2 diabetes mellitus without complications Category: Medical Plan: The patient's diabetes mellitus is well-controlled with an HbA1c of 7%, requiring no changes to the current management plan. (3) Pedal edema: Code(s): R60.0 - Localized edema Category: Medical Plan: Swelling in the feet is addressed with Lasix 20 mg, and follow-up blood tests are planned to monitor electrolytes. A chest x-ray and proBNP test are ordered to assess for fluid retention and potential congestive heart failure. (4) GARCIA (dyspnea on exertion): Code(s): R06.09 - Other forms of dyspnea Category: Medical Plan: Suspected congestive heart failure is evaluated with a chest x-ray and proBNP test. If confirmed, management will include diuretics and potential referral to cardiology. (5) Left ventricular hypertrophy: Code(s): I51.7 - Cardiomegaly Category: Medical Plan: Mild left ventricular hypertrophy is noted, requiring continued monitoring and management of blood pressure. (6) Calcification of aortic valve: Code(s): I35.9 - Nonrheumatic aortic valve disorder, unspecified Category: Medical Plan: Moderate aortic valve calcification is noted, with referral to cardiology recommended for further evaluation. Plan Plan Patient was informed and verbally consented to the use of an ambient scribe for clinic note documentation during this visit. 1. Hypertension The patient's hypertension is managed with losartan 50 mg and metoprolol extended release 50 mg, with recent manual blood pressure readings within acceptable range. No changes to the current regimen are planned unless significant changes in blood pressure are observed. 2. Diabetes Mellitus The patient's diabetes mellitus is well-controlled with an HbA1c of 7%, requiring no changes to the current management plan. 3. Peripheral Edema Swelling in the feet is addressed with Lasix 20 mg, and follow-up blood tests are planned to monitor electrolytes. A chest x-ray and proBNP test are ordered to assess for fluid retention and potential congestive heart failure. 4. Suspected Congestive Heart Failure Suspected congestive heart failure is evaluated with a chest x-ray and proBNP test. If confirmed, management will include diuretics and potential referral to cardiology. 5. Left Ventricular Hypertrophy Mild left ventricular hypertrophy is noted, requiring continued monitoring and management of blood pressure. 6. Aortic Valve Calcification Moderate aortic valve calcification is noted, with referral to cardiology recommended for further evaluation. During the visit, I discussed with the patient the variability in blood pressure readings and the current management plan with losartan and metoprolol. We reviewed the potential for congestive heart failure, given the symptoms of peripheral edema and dyspnea on exertion. I recommended a chest x-ray and proBNP test to assess for fluid retention and cardiac function. The patient was advised on the use of Lasix to manage edema and the importance of monitoring electrolytes. We also discussed the findings of left ventricular hypertrophy and aortic valve calcification, with a referral to cardiology for further evaluation. Orders: Orders Influenza [id number] Immunization Today Z23 - Encounter for immunization NT Pro B Type Natriuretic Pept Today R60.0 - Localized edema Basic Metabolic Panel 1 Week Z00.00 - Encounter for general adult medical examination without abnormal findings XR chest 2V Today R06.09 - Other forms of dyspnea, R60.0 - Localized edema Referrals Cardiology Referral E78.5 - Hyperlipidemia, unspecified, I10 - Essential (primary) hypertension, I35.9 - Nonrheumatic aortic valve disorder, unspecified, I51.7 - Cardiomegaly, I73.9 - Peripheral vascular disease, unspecified, R01.1 - Cardiac murmur, unspecified, R06.09 - Other forms of dyspnea Medications: New furosemide (Lasix) 20 mg PO DAILY 30 tabs 0RF metoprolol succinate ER 50 mg PO DAILY 90 tabs 3RF Patient Instructions: - Continue taking losartan 50 mg and metoprolol extended release 50 mg as prescribed. - Take Lasix 20 mg daily to manage swelling in the feet. - Schedule a chest x-ray and proBNP test to assess for fluid retention. - Monitor blood pressure regularly and report any significant changes. - Follow up with cardiology for evaluation of left ventricular hypertrophy and aortic valve calcification. - Return for follow-up in two months or sooner if symptoms worsen.
--- OUTSIDE RECORDS SUMMARY | 2024-12-17 20:32 | XMS_ITS | Clinical Summary ---
Author Organization [address] [place] [address] Address [address] [place] [address] Phone Care Team Providers Care Trim Machine Adjuster Name Role Phone Leo Lieberman MD Primary Care Provider Allergies No known active allergies Medications atorvastatin [...] Type 2 diabetes mellitus wit h polyneuropathy ([facility] V24, [facility] V28) 03/13/2019 Overview (02/05/2024): Uncontrolled type 2 diabetes mellitus with polyneuropathy Encounters Date Type Department Care Team Description 11/10/2024 Telephone Orthopedic [facility] [address] [address] Sandro Cheema DPM 10/08/2024 8:15 AM EDT Office Visit [facility] [address] [address] Sandro Cheema DPM Follow-up exam (Primary Dx); Diabetic mononeuropathy simplex (CMS/HCC V24, [facility] V28); Acquired hallux valgus of left foot; Metatarsalgia of both feet; Dermatophytosis of nail; Pain in toe of left foot; Pain in toe of right foot; Type II diabetes mellitus with peripheral circulatory disorder (CMS/HCC V24, [facility] V28); Corns and callosities; Hammer toe of [...] AM EST Office Visit Orthopedic Surgery - [place] [address] [address] Sandro Cheema, DPM [address] [address] Health Maintenance Due Date Last [...] R esult from Last 3 Months Insurance [facility] [employer] Care Teams Trim Machine Adjuster Relationship Specialty Start Date End Date Leo Liebreman MD [address] [place] [address] [place] PCP - General Internal Medicine 03/11/19
--- OUTSIDE RECORDS SUMMARY | 2024-12-17 20:33 | XMS_ITS | Patient Health Record ---
Author Organization [facility] Address [address] [place] [address] Care Team Providers Care Project Production Engineer Name Role Phone Mio (RETIRED) Leo HOLT Primary Care Provider Unavailable Raghav Llanos Unavailable [phone] Reason For Referral No Information Encounters Encounter Location Date Provider Diagnosis [facility] [address] [place] [address] 10/28/2024 Raghav Llanos Plan Of Treatment Next Appt Details Provider Name:Javed montejo , 03/04/2025 09:40:00 AM, [address], [address], [place], [address], Insurance Providers Payer Name Payer Address Payer Phone Subscriber Number Group Number Insured Name Patient Relationship to Insured Coverage Start Date Coverage End Date [facility] (NEEDS REFERRA L) [address] [place] [address] [id number] PRATIK DAMIAN Self - patient is the insured
== END 2024-12-17 15:40 | disposition home or self-care (01) ==
LOC: HO.HMCSH 14:21
PROVIDERS: PCP Physician Assistant Medical; Visit Provider Physician Assistant Medical
DX: I10 Essential (primary) hypertension (principal); E11.9 Type 2 diabetes mellitus without complications; R60.0 Localized edema; R06.09 Other forms of dyspnea; I51.7 Cardiomegaly; I35.9 Nonrheumatic aortic valve disorder, unspecified; Z23 Encounter for immunization

== ENCOUNTER → 2024-12-17 14:20 | Outpatient (BNVA) | payer OTHER, SELFPAY | PROVIDERS: PCP Physician Assistant Medical; Visit Provider Physician Assistant Medical | DX: E11.9 Type 2 diabetes mellitus without complications (principal); R60.0 Localized edema; R06.09 Other forms of dyspnea; I11.9 Hypertensive heart disease without heart failure; I35.9 Nonrheumatic aortic valve disorder, unspecified; E78.5 Hyperlipidemia, unspecified; I73.9 Peripheral vascular disease, unspecified; R01.1 Cardiac murmur, unspecified; Z28.9 Immunization not carried out for unspecified reason; Z79.899 Other long term (current) drug therapy | CPT/HCPCS: 90471; 96127; 99212 ==

== ENCOUNTER 2024-12-31 13:29 | Outpatient (REF) | payer OTHER, SELFPAY ==
--- OUTSIDE RECORDS SUMMARY | 2024-10-29 08:40 | XMS_ITS ---
Author Organization [facility] Address [address] [facility] [address] [place] [phone] Care Team Providers Care Line And Frame Poler Name Role Phone Mio (RETIRED) Leo HOLT Primary Care Provider Unavailable Raghav Llanos [phone] REASON FOR VISIT scrPatient presents today for a screening colonoscopy Encounters Encounter Location Date Provider Diagnosis [facility] [address] [facility] [address] [place] [phone] 10/29/2024 Raghav Llanos Plan Of Treatment Next Appt Details Provider Name:Javed Grover Jacobo nikia , 03/04/2025 09:40:00 AM, [address] [facility], [address], [place], [address], Progress Notes * RICKIEPRATIK MENESESDOB:1960 (64 yo M)Acc No.[id number]:10/29/2024 Progress Notes Patient: PRATIK REAGAN Provider: Olivia Llanos MD :1960 A ge:64 Y S ex:Male Date:10/29/2024 Address:[address] [place], [place] [id number] Pcp:Leo Lieberman (RETIRED) MD Subjective: * Chief Complaints: * 1 . scrPatient presents today for a screening colonoscopy. * Medical History: Objective: * Vitals: Assessment: Plan: * Treatment: * * The named appointment provid er may or may not be the originator of this progress note, and it is not deemed complete until electronically signed by the appointment provider. Sign off status: Pending * Provider: Olivia Llanos MD Date: 0 10/29/2024 Generated for Devin vuong/Adrianna/eTransmitting on: 03/02/2024 04:23 PM EST
--- NOTE | ~2024-12-31 | XR_ITS ---
EXAMINATION: XR CHEST CLINICAL INFORMATION: R60.0 - Localized edema COMPARISON: None available. TECHNIQUE: 2 views of the chest were obtained. FINDINGS: Cardiac mediastinal silhouette is within normal limits. Slight elevation right hemidiaphragm. There are 2 nodular opacities projected over the right midlung measuring 5 mm each. No effusion. No pulmonary edema. No pneumothorax. Thoracic spine degeneration. XR/XR chest 2V IMPRESSION: There are 2 nodules projected over the right lung, each measuring [address] chest for further evaluation Electronically signed by: Elder Colin MD 12/31/2024 01:51 PM EST
[2024-12-31 16:23] LABS: Anion Gap 13 (12-20); Blood Urea Nitrogen 22 mg/dL (9-16); Calcium 9.4 mg/dL (8.4-10.2); Carbon Dioxide 28 mmol/L (22-29); Chloride 106 mmol/L (96-108); Estimated Glomerular Filt Rate > 60; Potassium 4.4 mmol/L (3.3-5.1); Sodium 143 mmol/L (135-145)
--- OUTSIDE RECORDS SUMMARY | 2024-12-31 16:23 | XMS_ITS | Patient Health Record ---
Author Organization [facility] Address [address] [place] [address] Care Team Providers Care Program Review Director Name Role Phone Mio (RETIRED) Leo HOLT Primary Care Provider Unavailable Raghav Llanos Unavailable [phone] Reason For Referral No Information Encounters Encounter Location Date Provider Diagnosis [facility] [address] [place] [address] 10/28/2024 Raghav Llanos Plan Of Treatment Next Appt Details Provider Name:Javed montejo , 03/04/2025 09:40:00 AM, [address], [address], [place], [address], Insurance Providers Payer Name Payer Address Payer Phone Subscriber Number Group Number Insured Name Patient Relationship to Insured Coverage Start Date Coverage End Date [facility] (NEEDS REFERRA L) [address] [place] [address] [id number] PRATIK DAMIAN Self - patient is the insured
[2024-12-31 16:50] LABS: NT Pro B Type Natriuretic Pept 151.2 pg/mL (<300)
[2024-12-31 16:58] LABS: Folate 9.5 ng/mL (> or = 4.0); Vitamin B12 406 pg/mL (200-900)
[2024-12-31 17:23] LABS: Free T4 (Free Thyroxine) 0.94 ng/dL (0.71-1.85)
== END 2024-12-31 13:30 | disposition home or self-care (01) ==
LOC: HO.HMGCX 13:29
PROVIDERS: PCP Physician Assistant Medical; Visit Provider Physician Assistant Medical
DX: Z00.00 Encounter for general adult medical examination without abnormal findings (principal); R60.0 Localized edema; R06.09 Other forms of dyspnea
CPT/HCPCS: 36415; 71046; 80048; 82306; 82607; 82746; 83880; 84439; 84443

== ENCOUNTER → 2024-12-31 13:32 | Outpatient (BNV) | payer OTHER, SELFPAY | PROVIDERS: PCP Physician Assistant Medical; Visit Provider Radiology Diagnostic Ultrasound | DX: R91.8 Other nonspecific abnormal finding of lung field (principal) | CPT/HCPCS: 71046 ==

== ENCOUNTER 2025-02-17 13:51 | Outpatient (REF) | payer OTHER, SELFPAY ==
--- OUTSIDE RECORDS SUMMARY | 2024-10-29 08:40 | XMS_ITS ---
Author Organization [facility] Address [address] [place] [phone] Care Team Providers Care Dbas Name Role Phone KILO HUMMEL PA-C Primary Care Provider Raghav Hess [facility] [phone] REASON FOR VISIT scrPatient presents today for a screening colonoscopy Encounters Encounter Location Date Provider Diagnosis [facility] [address] [facility] [address] [place] [phone] 10/29/2024 Raghav Llanos Plan Of Treatment No Information Progress Notes * RICKIE PRATIKDOB:1960 (64 yo M)Acc No.[id number]:10/29/2024 Progress Notes Patient: PRATIK REAGAN Provider: Olivia Llanos MD :1960 A ge:64 Y S ex:Male Date:10/29/2024 Address:[address] [place], [place] [id number] Pcp:KILO HUMMEL PA-C Subjective: * Chief Complaints: * s crPatient presents today for a screening colonoscopy * The named appointment provid er may or may not be the originator of this progress note, and it is not deemed complete until electronically signed by the appointment provider. Sign off status: Pending * Provider: Olivia Llanos MD Date: 0 10/29/2024 Generated for Devin vuong/Adrianna/eTransmitting on: 04/20/2024 03:03 PM EST
--- NOTE | ~2025-02-17 | CT_ITS ---
EXAMINATION: CT CHEST WITH CONTRAST CLINICAL INFORMATION: R91.8 - Other nonspecific abnormal finding of lung field , 2 5 mm nodules demonstrated on chest x-ray in the right mid third lung COMPARISON: Chest x-ray 12/31/2024 TECHNIQUE: Multidetector volumetric CT imaging of the chest was obtained after the administration of 50 mL of Omnipaque 350 intravenous contrast without immediate adverse reactions. Axial MIP volume rendering provided. Sagittal and coronal reformatted images were obtained. This CT examination was performed using dose optimization techniques as appropriate, variously including the following: *Automated exposure control *Adjustment of mA and/or kV according to patient size (this includes techniques or standardized protocols for targeted exams where dose is matched to indication/reason for exam; i.e. extremities or head) *Use of iterative reconstruction technique FINDINGS: LUNGS: There are multiple granulomas in the lungs bilaterally, the largest is in the right upper lobe and measures 7 mm. There are no noncalcified nodules. MEDIASTINUM: The mediastinum is normal. PLEURA: There is no pleural effusion. No pleural mass or thickening. AXILLA: No lymphadenopathy. UPPER ABDOMEN: There is an 8 mm calcific stone in the mid right kidney OSSEOUS STRUCTURES: There are bridging osteophytes in the upper thoracic spine and syndesmophytes in the mid thoracic spine. CT/CT chest w IV con IMPRESSION: Chronic granulomatous disease: There are multiple calcified pulmonary nodules. Changes in the thoracic spine with features of both diffuse idiopathic skeletal hyperostosis (DISH) and ankylosing spondylitis. Fleischner guidelines were followed. Electronically signed by: Lionel Cabello MD 02/17/2025 03:35 PM [facility]
[2025-02-17 14:18] LABS: Hematocrit 43.5 % (42.0-52.0); Hemoglobin 15.3 g/dl (14.0-18.0); Mean Corpuscular HGB Conc 35.2 g/dl (31.0-36.0); Mean Corpuscular Hemoglobin 38.3 pg (27.0-33.0); Mean Corpuscular Volume 109.0 fL (80.0-98.0); NRBC Abs Auto 0.000 X10*3/uL (0.0-0.012); NRBC Pct Auto 0.0 /100WBC (0.0-0.2); Platelet Count 240 X10*3/uL (160-400); Red Blood Count 3.99 X10*6/uL (4.60-5.80); White Blood Count 7.7 X10*3/uL (4.8-10.8)
[2025-02-17 14:30] LABS: Alanine Aminotransferase 23 U/L (0-40); Albumin Level 4.5 g/dL (3.5-5.0); Alkaline Phosphatase 74 U/L (39-117); Anion Gap 13 (12-20); Aspartate Amino Transferase 27 U/L (5-37); Blood Urea Nitrogen 27 mg/dL (9-16); Calcium 9.8 mg/dL (8.4-10.2); Carbon Dioxide 29 mmol/L (22-29); Chloride 106 mmol/L (96-108); Estimated Glomerular Filt Rate > 60; Magnesium 1.9 mg/dL (1.6-2.6); Potassium 4.6 mmol/L (3.3-5.1); Sodium 143 mmol/L (135-145); Total Protein 7.7 g/dL (6.5-8.0)
--- OUTSIDE RECORDS SUMMARY | 2025-02-17 15:04 | XMS_ITS | Clinical Summary ---
Author Organization [address] [facility] Address [address] [place] [address] Phone Care Team Providers Care Harm Reduction Worker Name Role Phone Leo Lieberman MD Primary Care Provider [phone] Allergies No known active allergies Medications atorvastatin [...] 03/13/2019 Hypertension 03/13/2019 Type 2 diabetes mellitus with polyneuropathy Overview (02/05/2024): Uncontrolled type 2 diabetes mellitus with polyneuropathy Social History Tobacco Use Types Packs/Day Years Used Date Smoking Tobacco: Never Smokeless Tobacco: Never Alcohol Use Standard Drinks/Week Comments No 0 (1 standard drink = 0.6 oz pur e alcohol) Sex and Gender Information Value Date Recorded Sex Assigned at Not on file Legal Sex Male 11:56 PM EST Gender Identity Not on file Sexual Orientation Not on file Last Filed Vital Signs Vital Sign Reading [...] Upcoming Encounters Date Type Department Care Team ([facility] st Contact Info) Description 04/15/2025 8:45 AM EST Office Visit Orthopedic Surgery - [place] 250 175 [facility] 250 [place] [address] Sandro Cheema, DPM [address] [address] Health Maintenance Due Date Last [...] Screening 02/04/2024 Depression Screening 02/27/2024 COVID-19 Vaccine ( - 2024-2 6 season) 2024 Influenza Vaccine (#1) 2024 HIB [...] on patient's age to complete this topic Insurance [facility] PLANS Care Teams Harm Reduction Worker Relationship Specialty Start Date End Date Leo Lieberman MD [address] [facility] LEENA Nayak PCP - General Internal Medicine 03/11/19
--- OUTSIDE RECORDS SUMMARY | 2025-02-17 15:04 | XMS_ITS | Patient Health Record ---
Author Organization [facility] Address [address] [place] [address] Care Team Providers Care Chip Drier Name Role Phone KILO HUMMEL PA-C Primary Care Provider Raghav Hess [phone] Reason For Referral No Information Encounters Encounter Location Date Provider Diagnosis [facility] [address] [place] [address] 10/28/2024 Raghav Llanos [facility] [address] [place] [address] 01/29/2025 Raghav Llanos Plan Of Treatment No Information
[2025-02-17] MEDS: iohexoL 350 MG/ML 100 ML INFUS..BTL IV (15:10)
== END 2025-02-17 13:52 | disposition home or self-care (01) ==
LOC: HO.CT 13:51
PROVIDERS: PCP Physician Assistant Medical; Visit Provider Physician Assistant Medical
DX: Z00.00 Encounter for general adult medical examination without abnormal findings (principal); R91.8 Other nonspecific abnormal finding of lung field
CPT/HCPCS: 36415; 71260; 80053; 83735; 85027; Q9967

== ENCOUNTER → 2025-02-17 13:53 | Outpatient (BNV) | payer OTHER, SELFPAY | PROVIDERS: PCP Physician Assistant Medical; Visit Provider Radiology Diagnostic Radiology | DX: R91.8 Other nonspecific abnormal finding of lung field (principal) | CPT/HCPCS: 71260 ==